=== PATIENT | male | born 1965 | race Caucasian/White ===

== ENCOUNTER 2017-12-12 14:06 | Emergency (ER) | payer MEDICAID ==
[~2017-12-12] VITALS: Ht 182.9 cm; Wt 201.8 kg
[~2017-12-12 14:06] MED LIST: COUMADIN; DIABETA; DURAGESIC1 EAC2; LASIX 40 MG TAB40 M2 PO; NEURONTIN600 MG PO; NORVASC10 MG PO; OMEPRAZOLE; PERCOCET 5-3251 EACH PO; VALIUM
[2017-12-12] MEDS ORDERED: ALBUTEROL2.5 MG/0.5 INH (14:41)
[2017-12-12] MEDS ORDERED: ACCUNEB SO1.25 MG/1 INH (14:41)
[2017-12-12] MEDS ORDERED: ASPIRIN81 M2 PO (14:42)
[2017-12-12] MEDS ORDERED: VITAMINC500 PO (14:42)
[2017-12-12] MEDS ORDERED: ARIPIPRAZOLE OD15 MG PO (14:42)
[2017-12-12] MEDS ORDERED: ATORVASTATIN CA40 MG PO (14:42)
[2017-12-12] MEDS ORDERED: VITAMIN D2000 UNIT PO (14:43)
[2017-12-12] MEDS ORDERED: DOXEPIN 10 MG C10 MG PO (14:44)
[2017-12-12] MEDS ORDERED: EPINEPHRIN0.15 MG/01 IM (14:45)
[2017-12-12] MEDS ORDERED: PROZAC20 MG PO (14:45)
[2017-12-12] MEDS ORDERED: HYDRALAZINE 2525 MG PO (14:46)
[2017-12-12] MEDS ORDERED: LEVEMIR SUBQ (14:47)
[2017-12-12] MEDS ORDERED: COZAAR 50 MG TA50 M1 PO (14:48)
[2017-12-12] MEDS ORDERED: METFORMIN HCL500 MG PO (14:48)
[2017-12-12] MEDS ORDERED: ASMANEX220 MC2 INH (14:49)
[2017-12-12] MEDS ORDERED: MS CONTIN15 MG PO (14:49)
[2017-12-12] MEDS ORDERED: PREDNISONE 20 M20 MG PO (14:50)
[2017-12-12] MEDS ORDERED: PROMETHAZINE/C118 ML PO (14:50)
[2017-12-12] MEDS ORDERED: PROMS25 WY RECTAL (14:50)
[2017-12-12] MEDS ORDERED: ZANTAC 150MG T150 MG PO (14:51)
[2017-12-12] MEDS ORDERED: ALDACTONE25 MG PO (14:51)
[2017-12-12] MEDS ORDERED: FLOMAX0.4 MG PO (14:52)
[2017-12-12] MEDS ORDERED: GEODON40 MG PO (14:52)
[2017-12-12 14:58] LABS: ABSOLUTE BASOPHILS 0.1 thou/uL (0.0-0.2); ABSOLUTE EOSINOPHILS 0.1 thou/uL (0.0-0.7); ABSOLUTE LYMPHOCYTES 2.5 thou/uL (0.8-5.3); ABSOLUTE MONOCYTES 0.5 thou/uL (0.0-1.2); ABSOLUTE NEUTROPHILS 5.9 thou/uL (1.6-8.1); BASOPHILS 0.6 %; EOSINOPHILS 0.7 %; HEMATOCRIT 38.3 % (42.0-52.0); HEMOGLOBIN 12.7 gm/dL (14.0-18.0); LYMPHOCYTES 27.3 %; MCH 31.2 pg (26.0-34.0); MCHC 33.3 g/dL (28.0-37.0); MCV 93.9 fL (80.0-100.0); MONOCYTES 5.3 %; MPV 8.9 fl. (7.2-11.1); NUCLEATED RBCS 0 /100WBC; PLATELET COUNT* 211 thou/uL (150-400); POLYS 66.1 %; RBC 4.07 mil/uL (4.50-6.00); RDW-CV 16.5 % (10.5-14.5)
[2017-12-12 15:10] LABS: ANION GAP 5 mmol/L (7-16); BUN 14 mg/dL (7-18); CALCIUM 8.3 mg/dL (8.5-10.1); CHLORIDE 102 mmol/L (98-107); CO2 35 mmol/L (21-32); CREATININE 1.8 mg/dL (0.6-1.3); GLUCOSE 97 mg/dL (70-99); POTASSIUM 4.2 mmol/L (3.5-5.1); SODIUM 142 mmol/L (136-145)
[2017-12-12 15:17] LABS: ALBUMIN 3.1 g/dL (3.4-5.0); ALKALINE PHOSPHATASE 132 U/L (46-116); LIPASE 99 U/L (73-393); SGOT 11 U/L (15-37); SGPT 18 U/L (30-65); TOTAL BILIRUBIN 0.3 mg/dL (<0.1-1.0); TOTAL PROTEIN 7.7 g/dL (6.4-8.2); TROPONIN-I LEVEL <0.06 ng/mL (<0.06)
[2017-12-12 15:40] LABS: BE 7.5 mmol/L (-2 to +3); pH 7.348 (7.340-7.450)
[2017-12-12 15:43] LABS: PCO2 65.2 mmHg (35.0-45.0)
[2017-12-12 16:55] LABS: APTT 27.7 Seconds (25.0-31.3); PROTIME 10.1 Seconds (9.20-11.50)
[2017-12-12 17:24] LABS: URINE BILIRUBIN NEGATIVE (Negative); URINE BLOOD NEGATIVE (Negative); URINE CLARITY CLEAR; URINE COLOR YELLOW; URINE GLUCOSE-RANDOM NEGATIVE (Negative); URINE KETONES NEGATIVE (Negative); URINE LEUKOCYTES-REFLEX NEGATIVE (Negative); URINE NITRITE-REFLEX NEGATIVE (Negative); URINE PROTEIN NEGATIVE (Negative); URINE UROBILINOGEN 0.2 E.U./dl (0.2-1.0)
[2017-12-12 17:32] LABS: AMP/METHAMP Negative (Negative); BARBITURATES Negative (Negative); BENZODIAZEPINES POSITIVE (Negative); COCAINE Negative (Negative); METHADONE Negative (Negative); OPIATES Negative (Negative); PCP Negative (Negative); THC POSITIVE (Negative)
[2017-12-12 21:00] VITALS: BP 116/70
--- NOTE | 2017-12-13 12:58 | EKG ---
[place] [address] ELECTROCARDIOGRAM REPORT Name: FLACA BACON [id number] Admission: 12/12/17 Attend Phys: Discharge: 12/12/17 Date of : 65 Report #: [id number] THIS REPORT FOR: //name// [facility] ED Test Date: 2017-12-12 Test Time: 14:33:20 Pat Name: FLACA BACON Department: Room: Gender: M Medical Planner: Barbara ROBLEDO : 1965 Requested By: Shreya Capps Order Number: [id number] MD: Sancho Mendoza Measurements Intervals [place] Rate: 81 P: 23 UT: 239 QRS: -12 QRSD: 107 T: 31 QT: 413 QTc: 480 Interpretive Statements Sinus rhythm Prolonged UT interval artifact Compared to ECG 04/26/2011 00:32:18 First degree AV block now present Electronically Signed On 12-13-2017 12:58:33 RO[address] MAKER by Sancho Mendoza [email or web address] <ELECTRONICALLY SIGNED> By: Sancho Mendoza MD, [facility] 12/13/17 1258 1433 1433 Sancho Mendoza MD, FAC /EPI
== END 2017-12-12 21:05 | disposition short-term general hospital (02) ==
LOC: M.ERS 14:06
PROVIDERS: Physician Assistant
DX: R09.02 Hypoxemia (principal); M54.5 Low back pain; R32 Unspecified urinary incontinence; R91.8 Other nonspecific abnormal finding of lung field; G47.30 Sleep apnea, unspecified; I11.0 Hypertensive heart disease with heart failure; I50.9 Heart failure, unspecified; E11.9 Type 2 diabetes mellitus without complications; E66.9 Obesity, unspecified; F41.9 Anxiety disorder, unspecified; J45.909 Unspecified asthma, uncomplicated; F31.9 Bipolar disorder, unspecified; K21.9 Gastro-esophageal reflux disease without esophagitis; F20.9 Schizophrenia, unspecified; L40.9 Psoriasis, unspecified; G25.81 Restless legs syndrome; Z88.8 Allergy status to other drugs, medicaments and biological substances; Z88.2 Allergy status to sulfonamides; Z88.6 Allergy status to analgesic agent; Z88.1 Allergy status to other antibiotic agents; Z79.4 Long term (current) use of insulin; Z68.44 Body mass index [BMI] 60.0-69.9, adult

== ENCOUNTER 2017-12-19 06:45 | Inpatient (IN) | payer MEDICAID ==
[~2017-12-19] VITALS: Ht 182.9 cm; Wt 204.1 kg
[~2017-12-19 06:45] MED LIST changes: +ACCUNEB SO1.25 MG/1 INH; +ALBUTEROL2.5 MG/0.5 INH; +ALDACTONE25 MG PO; +ARIPIPRAZOLE OD15 MG PO; +ASMANEX220 MC2 INH; +ASPIRIN81 M2 PO; +ATORVASTATIN CA40 MG PO; +COZAAR 50 MG TA50 M1 PO; +DOXEPIN 10 MG C10 MG PO; +EPINEPHRIN0.15 MG/01 IM; +FLOMAX0.4 MG PO; +GEODON40 MG PO; +HYDRALAZINE 2525 MG PO; +LEVEMIR SUBQ; +METFORMIN HCL500 MG PO; +MS CONTIN15 MG PO; +PREDNISONE 20 M20 MG PO; +PROMETHAZINE/C118 ML PO; +PROMS25 WY RECTAL; +PROZAC20 MG PO; +VITAMIN D2000 UNIT PO; +VITAMINC500 PO; +ZANTAC 150MG T150 MG PO
[2017-12-19 06:47] VITALS: BP 114/69
[2017-12-19 07:00] LABS: BE 8.7 mmol/L (-2 to +3); HCO3 34.5 mmol/L (22.0-26.0); pH 7.436 (7.340-7.450)
[2017-12-19 07:02] LABS: PCO2 52.4 mmHg (35.0-45.0); PO2 53.5 mmHg (75.0-100.0)
[2017-12-19] MEDS ORDERED: XANAX 0.5 MG0.5 MG PO (07:22)
[2017-12-19] MEDS ORDERED: FLEXERIL PO (07:26)
[2017-12-19] MEDS ORDERED: CEFDINIR300 MG PO (07:27)
[2017-12-19] MEDS ORDERED: LEVEMIR SUBQ (07:28)
[2017-12-19] MEDS ORDERED: KLOR-CON 1010 MEQ PO (07:31)
[2017-12-19] MEDS ORDERED: ADVAIR HFA 230M12 GM INH (07:31)
[2017-12-19] MEDS ORDERED: AMBIEN 10 MG TA10 MG PO (07:32)
[2017-12-19] MEDS ORDERED: SENOKOT8.6 MG PO (07:32)
[2017-12-19] MEDS ORDERED: NYAMYC15 GM PO (07:35)
[2017-12-19] MEDS ORDERED: OXYCODONE HCL 55 MG PO (07:36)
[2017-12-19] MEDS ORDERED: HEALTHYLAX17 GM PO (07:36)
[2017-12-19 08:01] LABS: INFLUENZA A ANTIGEN None Detected (None Detect); INFLUENZA B ANTIGEN None Detected (None Detect)
[2017-12-19 08:07] LABS: ABSOLUTE BASOPHILS 0.1 thou/uL (0.0-0.2); ABSOLUTE EOSINOPHILS 0.2 thou/uL (0.0-0.7); ABSOLUTE LYMPHOCYTES 2.2 thou/uL (0.8-5.3); ABSOLUTE MONOCYTES 0.5 thou/uL (0.0-1.2); ABSOLUTE NEUTROPHILS 5.1 thou/uL (1.6-8.1); BASOPHILS 0.7 %; EOSINOPHILS 2.3 %; HEMATOCRIT 37.3 % (42.0-52.0); HEMOGLOBIN 12.2 gm/dL (14.0-18.0); LYMPHOCYTES 27.3 %; MCH 30.7 pg (26.0-34.0); MCHC 32.7 g/dL (28.0-37.0); MONOCYTES 6.1 %; MPV 9.5 fl. (7.2-11.1); NUCLEATED RBCS 0 /100WBC; PLATELET COUNT* 188 thou/uL (150-400); POLYS 63.6 %; RBC 3.96 mil/uL (4.50-6.00); RDW-CV 16.3 % (10.5-14.5); WBC 8.1 thou/uL (4.0-11.0)
[2017-12-19 08:14] LABS: PROTIME 10.1 Seconds (9.20-11.50)
[2017-12-19 08:20] LABS: ANION GAP 4 mmol/L (7-16); BUN 22 mg/dL (7-18); CALCIUM 8.6 mg/dL (8.5-10.1); CHLORIDE 102 mmol/L (98-107); CO2 37 mmol/L (21-32); CREATININE 1.5 mg/dL (0.6-1.3); GLUCOSE 116 mg/dL (70-99); POTASSIUM 3.8 mmol/L (3.5-5.1); SODIUM 143 mmol/L (136-145)
[2017-12-19 08:24] LABS: ALBUMIN 3.1 g/dL (3.4-5.0); ALKALINE PHOSPHATASE 109 U/L (46-116); LIPASE 85 U/L (73-393); NT-PRO BRAIN NAT PEPTIDE 52 pg/mL (<300); SGOT 20 U/L (15-37); SGPT 23 U/L (30-65); TOTAL BILIRUBIN 0.3 mg/dL (<0.1-1.0); TOTAL PROTEIN 7.3 g/dL (6.4-8.2); TROPONIN-I LEVEL <0.06 ng/mL (<0.06)
[2017-12-19 10:26] LABS: HCO3 36.1 mmol/L (22.0-26.0); PO2 71.6 mmHg (75.0-100.0); pH 7.434 (7.340-7.450)
[2017-12-19 10:31] LABS: PCO2 55.2 mmHg (35.0-45.0)
[2017-12-19 14:51] VITALS: BP 121/59
[2017-12-19 16:46] VITALS: BP 146/69
--- NOTE | 2017-12-19 18:00 | NUR ---
RECEIVED REPORT FROM GADIEL IN ER. PT TRANSFERED TO [facility] AT 1455. PT A&O X4. VSS. PT ON CONTINUOUS BIBAP, TO COME OFF FOR MEALS ONLY. BRANCH LOGISTICS SUPERVISOR IN PLACE TRACING SR WITH 1DEGREE. PT ORIENTED TO ROOM, BED AND CALL LIGHT. ADMISSION ASSESSMENT, HISTORY, AND EDUCATION COMPLETED CHARTED. PT REPORTS BACK PAIN 4/10 THAT IS CHRONIC, DENIES NEED FOR MEDICATION FOR PAIN AT THIS TIME. PT EATING AND DRINKING WITHOUT ISSUE. PULMOARY CONSULTED. SPOUSE AT BEDSIDE. PT UP TO BEDSIDE COMMODE WITH ASSIST OF SPOUSE TO VOID AND HAVE BM - NO ISSUES. NOTED PT'S DRY SKIN ON FEET. MEDS GIVEN PER EMAR. IV SALINE LOCKED. PT CURRENTLY SITTING IN BEDSIDE CHAIR. FALL PRECAUTIONS ARE IN PLACE, EXCEPT FALL SOCKS - THEY WILL NOT FIT PT. CALL LIGHT IS WITHIN REACH, HOURLY ROUNDING PERFORMED.
--- NOTE | 2017-12-19 18:10 | EKG ---
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: : 1965 Requested By: Phong Benedict Order Number: [id number] MD: Jeff Osborn Measurements Intervals [place] Rate: 80 P: 0 OR: 58 QRS: -14 QRSD: 109 T: 28 QT: 398 QTc: 460 Interpretive Statements Sinus rhythm Short OR interval Low voltage, precordial leads Baseline wander in lead(s) V2 Compared to ECG 12/12/2017 14:33:20 Short OR interval now present Low QRS voltage now present First degree AV block no longer present Electronically Signed On 12-19-2017 18:10:18 CDT by Jeff Osborn [email or web address] <ELECTRONICALLY SIGNED> By: Jeff Osborn MD, FACC 12/19/17 1810 0649 0649 Jeff Osborn MD, FAC /EPI
[2017-12-19 20:00] VITALS: BP 120/54
[2017-12-20 00:12] VITALS: BP 143/68
--- NOTE | 2017-12-20 03:24 | NUR ---
PT ALERT ORIENTED. IN ROOM WITH PT. TELEMETRY SHOWS SR. PT SLEEPING IN RECLINING CHAIR. PT IS OBESE. INITALLY O2 AT 5 LITERS NC. BIPAP ON AT 2200. OXYCODONE GIVEN FOR BACK PAIN. PT REFUSED LASIXS AT HS. PT STATED THAT HE HAD IT IN ED AND ON FLOOR AFTER ADMISSION. PT ALSO REFUSED STOOL SOFTENERS AND MIRALAX STATING HE GOES 2-3 TIMES A DAY. WILL CONTINUE TO MONITOR.
[2017-12-20 03:49] VITALS: BP 118/64
[2017-12-20 06:00] LABS: HEMATOCRIT 34.9 % (42.0-52.0); HEMOGLOBIN 11.6 gm/dL (14.0-18.0); MCH 31.3 pg (26.0-34.0); MCHC 33.1 g/dL (28.0-37.0); MCV 94.4 fL (80.0-100.0); MPV 9.7 fl. (7.2-11.1); RBC 3.7 mil/uL (4.50-6.00); RDW-CV 16.5 % (10.5-14.5); WBC 8.9 thou/uL (4.0-11.0)
[2017-12-20 06:32] LABS: ANION GAP 4 mmol/L (7-16); BUN 31 mg/dL (7-18); CALCIUM 8.6 mg/dL (8.5-10.1); CHLORIDE 100 mmol/L (98-107); CO2 36 mmol/L (21-32); CREATININE 1.5 mg/dL (0.6-1.3); GLUCOSE 219 mg/dL (70-99); MAGNESIUM 2.2 mg/dL (1.8-2.4); POTASSIUM 4.6 mmol/L (3.5-5.1); SODIUM 140 mmol/L (136-145); TROPONIN-I LEVEL <0.06 ng/mL (<0.06)
[2017-12-20 08:10] VITALS: BP 134/74
[2017-12-20 12:00] VITALS: BP 130/58
--- NOTE | 2017-12-20 15:16 | 2DMMODE ---
[place] [address] 2 D/M-MODE ECHOCARDIOGRAM Name: FLACA BACON Room: [address] IN [facility]#: [id number] Admission: 12/19/17 Attend Phys: Javier Torres Discharge: Date of : 65 Date of Service: 12/20/17 1516 Report #: [id number] THIS REPORT FOR: //name// APPROVED REPORT Study performed: 12/19/2017 18:08:53 EXAM: Comprehensive 2D, Doppler, and color-flow Echocardiogram Patient Location: In-Patient Room #: [facility] Status: routine BSA: 2.98 HR: 75 bpm BP: 121/559 mmHg Rhythm: NSR Other Information Study Quality: Technically Limited Technically limited study due to body habitus, poor endocardial definition, inability to position patient. Indications Respiratory failure, cor-pulmonale Echo Enhancing Agent Indication: Endocardial border delineation Agent(s) / Amount(s) Used: Optison 5 cc Aortic Valve AoV Peak Alan.: 1.58 m/s AO Peak Gr.: 10.02 mmHg AO Mean Gr.: 5.96 mmHg AO V2 VTI: 31.89 cm Mitral Valve E/A Ratio: 1.06 MV Decel. Time: 257.34 ms MV E Max Alan.: 1.06 m/s MV PHT: 74.63 ms MVA (PHT): 2.95 cm2 Left Ventricle The left ventricle is normal size. There is normal left ventricular wall thickness. The left ventricular systolic function is normal. The left ventricular ejection fraction is within the [place] [address] 2 D/M-MODE ECHOCARDIOGRAM Name: FLACA BACON Khadijah Room: [address] IN [facility]#: [id number] Admission: 12/19/17 Attend Phys: Javier Torres Discharge: Date of : 65 Date of Service: 12/20/17 1516 Report #: [id number] is 55-60%. The left ventricular diastolic function is normal. Right Ventricle Right ventricle is not well visualized. Atria Left atrium is not well visualized. Right atrium is not well visualized. Aortic Valve The aortic valve is not well visualized. Mitral Valve Mitral valve is not well visualized. Tricuspid Valve Tricuspid valve is not well visualized. Pulmonic Valve Pulmonic valve is not well visualized. Great Vessels IVC is not visualized. <Conclusion> The left ventricular systolic function is normal. The left ventricular ejection fraction is within the normal range. LVEF is 55-60%. The left ventricular diastolic function is normal. Right ventricle is not well visualized. Left atrium is not well visualized. Right atrium is not well visualized. The aortic valve is not well visualized. Mitral valve is not well visualized. Pulmonic valve is not well visualized. <ELECTRONICALLY SIGNED> By: Basil Pepe MD, FACC 12/20/17 151 15 15 Basil Pepe MD, FAC /INF
[2017-12-20 16:00] VITALS: BP 130/59
--- NOTE | 2017-12-20 18:48 | NUR ---
RECEIVED REPORT. ASSUMED CARE OF PT AT 0730. VSS. O2 SAT 91% ON 5L PER NC. PT A&OX4. COMPUTER DISCOVERY TEACHER IN PLACE TRACING SR WITH 1 DEGREE AV BLOCK. AM ASESSMENT AND VITALS COMPLETED CHARTED. IV SALINE LOCKED. PT REPORTED BACK PAIN THIS AM, RECEIVED PO PAIN MEDIATION WITH RELIEF. PT WOULD LIKE TO RECEIVE MORE PAIN MEDICATIN AT 7PM - WILL ADMINSITER. SEE EMAR FOR ADMINISTRATION AND REASSESSMENT OF PAIN MEDS. PT EATING AND DRINKING WITHOUT ISSUE. PT UP TO BEDSIDE COMMODE TO VOID; VOIDING WITHOUT ISSUE. PT'S REMAINING AT BEDSIDE TO ASSIST PT. PT STATES HE FEELS BETTER THAN YESTERDAY. PT SOB WITH EXERTION. PT SLOWLY PROGRESSING TOWARD GOALS. PT REPOSITIONING SELF FREQUENTLY FOR COMFORT, HAS SAT IN BEDSIDE CHAIR MOST OF SHIFT. PT CURRENTLY WATCHING TV. FALL PRECAUTIONS ARE IN PLACE. CALL LIGHT IS WITHIN REACH, HOURLY ROUNDING PERFORMED. WILL CONTINUE TO MONITOR FOR DURATION OF SHIFT.
[2017-12-20 20:00] VITALS: BP 134/67
[2017-12-21 00:12] VITALS: BP 119/65
--- NOTE | 2017-12-21 01:05 | NUR ---
PT ALERT ORIENTED. UP AD JUAN MIGUEL IN ROOM. AT BEDSIDE. O2 AT 5 LITERS NC. BIPAP AT HS. PAIN RATED 4/10. PT STATES THAT IS THE BEST HIS PAIN GETS. TELEMETRTY SHOWS SR. LASIX WAS SCHEDULED Q [address] VELASQUEZ CONTACTED TO SEE IF ORDER COULD BE CHGED TO BID SO PT CAN GET SOME SLEEP. ORDER CHGD TO BID. WILL CONTINUE TO MONITOR.
[2017-12-21 04:00] VITALS: BP 119/61
[2017-12-21 04:16] LABS: HEMATOCRIT 33.9 % (42.0-52.0); HEMOGLOBIN 11.2 gm/dL (14.0-18.0); MCH 31.2 pg (26.0-34.0); MCHC 33.1 g/dL (28.0-37.0); MCV 94.1 fL (80.0-100.0); MPV 10.3 fl. (7.2-11.1); RBC 3.6 mil/uL (4.50-6.00); RDW-CV 16.4 % (10.5-14.5); WBC 10.4 thou/uL (4.0-11.0)
[2017-12-21 04:27] LABS: CALCIUM 8.5 mg/dL (8.5-10.1); CREATININE 1.7 mg/dL (0.6-1.3); MAGNESIUM 2.2 mg/dL (1.8-2.4); POTASSIUM 4.8 mmol/L (3.5-5.1); TOTAL BILIRUBIN 0.2 mg/dL (<0.1-1.0); TOTAL PROTEIN 6.8 g/dL (6.4-8.2)
--- NOTE | 2017-12-21 07:08 | CON ---
[facility] [address] [place] [address] CONSULTATION Name: ARLEENFLACA D Room: [address] IN [facility]#: [id number] Admission: 12/19/17 Attend Phys: Javier Tillman, Discharge: Date of : 65 Report #: [id number] THIS REPORT FOR: //name// CC: SHANNA physician/PCP Javier Tillman REQUESTING PHYSICIAN: Dr. Javier Tillman. REASON FOR CONSULTATION: Acute on chronic respiratory failure. DISCUSSION: The patient is a 52-year-old male with a history of morbid obesity and obstructive sleep apnea on BiPAP at home. He is also on chronic oxygen. He was admitted after presenting to the Emergency Department yesterday morning. He had complained of marked shortness of breath, feeling like he was going to pass out. He was gasping for breath at home, had some chest tightness. He apparently was just discharged from [facility] several days prior to this. He notes he was treated for pneumonia and respiratory failure at that time. He was in the ICU for part of that time, but was not intubated. Currently, we do not have any of those records. When he was admitted here, he was hypercapnic. He was placed on BiPAP. He was kept on that overnight, is currently on nasal cannula. Subjectively, he is feeling better. He is a non-cigarette smoker. He was smoking marijuana up till a couple of months ago. He states he quit when he was told that he had COPD. He has gotten his healthcare in a variety of areas. He notes he just moved up to this area again [place] [facility], though he has ED visits here at [place] in the past, given he was just recently at [facility]. He has a history of morbid obesity. He does note overall his weight is less than what it had been in the past. At one point, he was over 600 pounds. He does have obstructive sleep apnea. He did have sleep study done at this facility back in the year 2009 and at that time, it did show that he had severe obstructive sleep apnea. He had an apnea-hypopnea index of 142. He notes he is now on a BiPAP at home. He has been on O2 during the day as well as bled into his BiPAP. However once he was discharged from [facility], he has not been using that. He has a nebulizer at home, but has not filled any medications for it. He does have an albuterol inhaler at home. He does note that he was coughing up yellow secretions, no hemoptysis. That has improved. He was taking antibiotics when he was discharged from [place]. Denies being on any steroids. It does appear there are discrepancies on the admission medication sheet from the ED, as he is not on nebulizer treatments, prednisone or Asmanex. PAST MEDICAL HISTORY: Remarkable for the morbid obesity. [place] [address] CONSULTATION Name: FLACA BACON Room: [address] IN [facility]#: [id number] Admission: 12/19/17 Attend Phys: Javier Tillman, Discharge: Date of : 65 Report #: [id number] told he has congestive heart failure. 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 History of DVT on the left side some years ago. He has chronic back pain, is on chronic narcotics. Also, he has a history of pseudotumor cerebri, anxiety, bipolar disorder, GERD, hypertension. 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 He does not work now. Non-cigarette smoker as noted. He is . Smoked marijuana until several months ago. Denies other drug use. FAMILY HISTORY: Positive for heart disease. REVIEW OF SYSTEMS: ROS was obtained from the patient. No positives as above. HE DOES HAVE SIGNIFICANT ALLERGIES TO OTHER MEDICATIONS WELL TO WASP. He does have access to an EpiPen at home, though he notes that it has . He has never had to use it. He denies any recent nausea or vomiting. No hemoptysis. No indigestion or heartburn. He has chronic lower extremity edema that overall is better than what it was when he was first admitted to [place]. Recently, however, he has noted increased facial swelling as well as some in his hands. He has not noted any blood in the stools. He has chronic back pain. He notes some numbness and tingling of the lower extremities. He denies any true syncopal episodes. He has been on warfarin for years, he was on it previously for his DVT. PHYSICAL EXAMINATION: GENERAL: The patient is seen while sitting at the bedside. He is a large man. His is also present in the room and is able to contribute to some of the history. HEENT: Head is normocephalic. Sclerae are nonicteric. Mucous membranes do look moist. Face does look almost cushingoid. NECK: Large, but supple without adenopathy. No JVD is noted. HEART: Tones are distant, but appear regular. No S3 is appreciated. LUNGS: Reveal breath sounds to be somewhat diminished given his body habitus. Slight prolongation of expiratory phase. No wheezing or crackles are heard. No CVA tenderness. ABDOMEN: Very obese. Does not appear tender to palpation. EXTREMITIES: He may have swelling in his hands. Lower extremities have trace to 1+ edema. Pulses are present, but diminished. SKIN: Turgor is fair. He has multiple tattoos throughout trunk and extremities and his back. NEUROLOGIC: He is alert and oriented x 3. LABORATORY AND X-RAY FINDINGS: Portable chest film done yesterday in the ED does show some cardiomegaly. Some prominence of markings noted bilaterally. Could be CHF, intermittently infiltrates. He did have a CT angiogram done of his chest on 12/12/2017 here when seen in the ED. No PE was noted. He did have some mild bilateral perihilar ground-glass infiltrates[place] [address] CONSULTATION Name: ARLEENFLACA Khadijah Room: [address] IN [facility]#: [id number] Admission: 12/19/17 Attend Phys: Javier Tillman, Discharge: Date of : 65 Report #: [id number] done on 12/12/2017 when he had ED visit on 2 liters, he had a pH of 7.35, pCO2 of 65, pO2 of 59 with a saturation of 88%. Carboxyhemoglobin was 1.7. Yesterday morning, pH 7.44, pCO2 of 52, pO2 of 54, bicarbonate 35 and saturation of 88%, that was on 6 liters. Followup blood gases yesterday on BiPAP, pH 7.43, pCO2 of 55, pO2 72, bicarbonate 36 with a saturation of 94%. On his chemistry, potassium is 4.6, BUN 31, creatinine of 1.5, glucose 219. Transaminases are normal. Lactic acid last week was 1.4. ProBNP yesterday was only 52. White blood cell count 8900, hemoglobin 11.6, hematocrit of 34.9, platelets are normal. Influenza screen was negative. EKG shows normal sinus rhythm. IMPRESSION: 1. Acute respiratory failure superimposed on chronic respiratory failure. Clinically better this morning. He is recovering from pneumonia, which was treated at [facility]. It is not clear exactly what antibiotic he was on. 2. Severe obstructive sleep apnea. He may also have a component of obesity hypoventilation syndrome. He has not been compliant with his BiPAP. 3. Chronic respiratory failure. It appears that he is chronically hypercapnic and hypoxic. 4. Possible chronic obstructive pulmonary disease. He states he has been told that he has it. He has a nebulizer at home, but has not been using it. He has not refilled a prescription for medications for it. 5. Past history of DVT. A recent CTA of his chest was negative for PE. 6. HISTORY OF ENVIRONMENTAL AND MEDICATION ALLERGIES. 7. Chronic back pain, on chronic narcotics. 8. Morbid obesity. RECOMMENDATIONS: 1. Await records from [facility]. 2. He needs to be compliant with his BiPAP at home. Reiterated untreated or undertreated sleep apnea can contribute to fluid retention, cardiac issues, early , etc. 3. Follow up blood gases. 4. Also check TSH, that has not been done this admission. 5. Long-term weight loss. 6. I will check lower extremity venous Dopplers given his history. 7. Wean O2 as able. <ELECTRONICALLY SIGNED> By: Liza South MD 12/21/17 0708 0936 1130Liza South MD /nt
[2017-12-21 08:00] VITALS: BP 128/68
[2017-12-21 10:10] LABS: HCO3 32.2 mmol/L (22.0-26.0); PCO2 47.9 mmHg (35.0-45.0); PO2 63.5 mmHg (75.0-100.0); pH 7.445 (7.340-7.450)
[2017-12-21 12:00] VITALS: BP 137/68
--- NOTE | 2017-12-21 15:59 | NUR ---
RECEIVED REPORT. ASSUMED CARE OF PT AT 0730. PT A&O X4. VSS. O2 SAT 92% ON 4L PER NC. MULTIMEDIA ENGINEER IN PLACE TRACING SB TO SR WITH 1 DEGREE AV BLOCK. AM ASSESSMENT AND VITALS COMPLETED CHARTED. IV SALINE LOCKED. PT REPORTED HEADACHE PAIN/PRESSURE THIS AFTERNOON AND RECEIVED PO PAIN MEDICATION WITH RELIEF. PT STATES HE FEELS TIRED BECAUSE HE DIDN'T SLEEP WELL DUE TO BIPAP MASK NOT FITTING WELL. PT EATING AND DRINKING WITHOUT ISSUE. AT BEDSIDE. PT USING URINAL TO VOID, NO ISSUES. PT REPORTED BM EARLY THIS AM. PT INFORMED OF PLAN OF CARE, PT COMMUNCIATES UNDERSTANDING. PT REMAINS SOB WITH EXERTION. ABG'S BETTER TODAY, SEE LABS. FALL PRECAUTIONS ARE IN PLACE. CALL LIGHT IS WITHIN REACH, PT REPOSITIONING SELF IN THE BED. WILL CONTINUE TO MONITOR.
[2017-12-21 16:00] VITALS: BP 135/67
--- NOTE | 2017-12-21 18:58 | NUR ---
PT REMAINS A&O X4. VSS. O2 >90% ON 4L. NURSERY SUPERVISOR REMAINS IN PLACE WITH NO CHANGES THIS SHIFT. PT REPORTS RELIEF FROM PAIN PILL HE RECEIVED THIS AFTERNOON FOR HEAD PRESSURE. GAVE PT A BED BATH THIS EVENING. PT EATING AND DRINKING WITHOUT ISSUE. PT VOIDING PER URINAL. PT PROGRESSING TOWARDS GOALS. PT HAS BEEN IN BEDSIDE CHAIR AND BED TODAY. EDUCATED ABOUT CHANGING POSITIONS TO KEEP SKIN FROM BREAKING DOWN. PT COMMUNICATES UNDERSTANDING. PT CURRENTLY RESTING IN BED. FALL PRECAUTIONS ARE IN PLACE. CALL LIGHT IS WITHIN REACH, HOURLY ROUNDING PERFORMED.
[2017-12-21 20:00] VITALS: BP 123/36
[2017-12-22] VITALS (8 sets, daily range): BP systolic 113–155; BP diastolic 57–72
--- NOTE | 2017-12-22 04:58 | NUR ---
PATIENT PROGRESSING TOWARDS GOALS: PATIENT TOLERATED BIPAP THROUGHOUT SHIFT. PATIENT DENIES PAIN OR DISCOMFORT THAT IS NOT HIS "USUAL CHRONIC PAIN." PATIENT RESTED COMFORTABLY THROUGH THE SHIFT WITH NO REQUESTS/CONCERNS. HOURLY ROUNDING OBSERVED. CALL LIGHT WITHIN REACH
[2017-12-22 06:13] LABS: CALCIUM 8.8 mg/dL (8.5-10.1); CREATININE 1.7 mg/dL (0.6-1.3); MAGNESIUM 2.3 mg/dL (1.8-2.4); POTASSIUM 5.3 mmol/L (3.5-5.1)
--- NOTE | 2017-12-22 12:57 | NUR ---
Nutrition: Pt admitted with respiratory failure. PMHx: cor pulmonale, DM, GERD, HTN, bipolar disorder. Wt: 456#. Consult received for "obesity." BG 303, alb 3, BUN 45, creat 1.7. RX: insulin, vit C, D3, lasix, solumedrol. On bipap. Eating CHO controlled diet. Pt is at Mild risk. GOALS: better BG control, good appetite. Will follow up per protocol.
--- NOTE | 2017-12-22 13:58 | NUR ---
MET WITH PT AND TO DISCUSS HOME SITUATION/DC PLANNING. PT LIVES WITH AND DTR. THEY RECENTLY MOVED FROM [place] TO [place] TO HAVE MORE FAMILY SUPPORT. PT USES O2 (FOR ACTIVITY AND THRU BIPAP AT NIGHT, 2L) AND BIPAP THRU [facility]. HE HAS WALKER THAT HE USES WHEN OUT OF THE HOUSE AND A POWER W/C ALSO. IS WORKING TO GET A 'LIFT' FOR THEIR CAR FOR HIS W/C. PT IS FAIRLY INDEPENDENT WITH ADLS, DTR AND ASSIST NEEDED. HE HAD A RECENT STAY AT [facility] FOR PNA, STATED HE WAS TRANSFERRED THERE FOR OPEN MRI AND ADMITTED TO ICU AFTER. NEVER INTUBATED. PT AND STATE THEY ARE SEEKING NEW MEDICAL PROVIDERS SINCE MOVE. HE HAS APPT WITH DR OMARI DOMINGO 12/29 AT [facility] [place], DID CONFIRM THAT. THEY WOULD LIKE CLINICAL [place] [phone] AT [place]. ASKED ABOUT HELP WITH GETTING A NEW NEUROLOGIST, PAIN MGMT AND PLASTERING SUPERVISOR. MADE HER AWARE THAT RECOMMENDATIONS WOULD BE MADE AT [place] FOR F/;U. WILL CONTACT PAIN CLINIC TOMORROW TO CHECK IF THEY ACCEPT MEDICAID PTS. PT DOESN'T HAVE A DPOA, INFO GIVEN. WILL ALSO PROVIDE INFO RE: IN HOME CARE FOR CONSUMER [facility]EN [facility]. PT HAS NOT HAD HH, NOT SURE THEY WANT THAT. WILL FOLLOW.
[2017-12-22 14:18] LABS: HEMATOCRIT 36.2 % (42.0-52.0); HEMOGLOBIN 11.9 gm/dL (14.0-18.0); MCH 31.1 pg (26.0-34.0); MCHC 32.8 g/dL (28.0-37.0); MCV 94.6 fL (80.0-100.0); MPV 10.1 fl. (7.2-11.1); RBC 3.82 mil/uL (4.50-6.00); RDW-CV 16.9 % (10.5-14.5); WBC 10.7 thou/uL (4.0-11.0)
[2017-12-22 15:30] LABS: BE 5.3 mmol/L (-2 to +3); HCO3 30.8 mmol/L (22.0-26.0); PCO2 48.9 mmHg (35.0-45.0); PO2 85.1 mmHg (75.0-100.0); pH 7.417 (7.340-7.450)
--- NOTE | 2017-12-22 18:00 | NUR ---
PT A & O X4, ABLE TO COMMUNICATE NEEDS TO STAFF. VS WNL. SB-SR, 1 D BLOCK ON MONITOR. O2 SATS >92% ON 4L NC. APPEARS TO BE COMFORTABLE. AMBULATING TO BR ON OWN WITH STEADY GAIT. AT BS. NEEDED ITEMS AND CALL LIGHT WITHIN REACH.
[2017-12-23 04:00] VITALS: BP 135/71
--- NOTE | 2017-12-23 04:56 | NUR ---
PATIENT REMAINS STABLE THIS SHIFT ON BIPAP OVERNIGHT AND ON 3.5L O2 NC THIS AM WITH SATS >92%. CASTING MACHINE SERVICE OPERATOR TRACING SR/SB 1AVB AND VSS. PATIENT HAD C/O BACK PAIN AT HS, PRN MEDICATION ADMINISTERED PER EMAR. PATIENT RESTED WELL THROUGHOUT SHIFT. PATIENT UP TO BATHROOM WITH STANDBY ASSIST, TOLERATES ACTIVITY WITH MINIMAL SHORTNESS OF AIR ON EXERTION. HOURLY ROUNDING OBSERVED. CALL LIGHT WITHIN REACH.
[2017-12-23 08:07] VITALS: BP 133/76
--- NOTE | 2017-12-23 09:59 | NUR ---
ASSUMED CARE OF PT THIS AM AROUND 0715- TEAM PSYCHOLOGIST IN PLACE ORDERED, TRACING SB WITH 1ST DEGREE- UPON ASSESSMENT PT NOTED TO BE RESTING IN BED, WATCHING TV- PT A&O X4- CONTINENT OF BOWEL AND BLADDER- SBA WITH TRANSFERS FOR SAFETY- DIMINSHED LUNG SOUNDS WITH AUDIBLE WHEEZING- DYSPNEA NOTED ON EXERTION- VSS, O2 SAT 95% ON 3.5L- NON-PRODUCTIVE COUGH NOTED- ABDOMEN FIRM/OBESE/NON-TENDER, BS X4 QUADS- PT REPORTS T6O HAVE HAD BM THIS AM- BLOOD SUGARS MONITORED ORDERED, SSI PRESCIBED- GOOD PO INTAKE NOTED THIS AM WITH BREAKFAST- IV NOTED TO RIGHT AC INTACT AND SL-2+ BLE EDEMA NOTED, LEG ELEVATION ENCOURAGED- PT REPORTS PAIN 7/10 TO BACK, SCHEDULED MORPHINE GIVEN THIS AM PRESCIBED- CALL LIGHT AND PERSONAL BELONGINGS WITH IN REACH- HOURLY ROUNDS IN PLACE R/T SAFETY/NEEDS-ALL NEEDS MET AT THIS TIME-WCTM
[2017-12-23 12:00] VITALS: BP 132/65
[2017-12-23] MEDS ORDERED: PREDNISONE 10 M10 MG PO (12:47)
[2017-12-23 12:50] VITALS: BP 132/65
--- NOTE | 2017-12-23 13:55 | NUR ---
ORDERS NOTED FOR DC HOME. MET WITH PT AND TO FINALIZE DC PLAN. WAS ABLE TO FIND PAIN CLINIC[facility] THAT WILL CONSIDER PT LONG THEY GET A REFERRAL FROM PREVIOUS DR AND SEND CLINICAL FOR PAST 6 MONTHS RE: PAIN ISSUES, DEMOS, COPY OF INS CARD AND DRIVERS LICENSE AND DR CONTACT INFO. GAVE ALL OF THAT INFO TO PT'S WITH PHONE AND FAX NUMBER OF CLINIC. SHE PLANS TO CONTACT PT'S PREVIOUS DR TO OBTAIN. FAXED CLINICAL TO [facility] IN [place], PT HAS APPT FRIDAY. ALSO GAVE NUMBER FOR CARDIOLOGY OFFICE PER REQUES. PT TO HAVE RA/AMB SATS FOR O2 NEEDS, ALREADY HAS HOME O2 BUT ONLY WEARS PRN AND AT NIGHT THRU BIPAP. AWAIT THOSE RESULTS
--- NOTE | 2017-12-23 16:29 | NUR ---
ORDERS RECIEVED FOR OKAY FOR PT TO BE D/C HOME PER THIS AM ,POST RT EVAL FOR O2- R/T COMPLETED EVAL STATING THAT PT DID NOT NEED O2 AT HOME- PT AHS O2 NEEDED AT HOME AT THIS TIME- BIPAP TO BE WORN AT HS, PT VOICES UNDERSTANDING- IV TO RIGHT AC D/C'S ALONG WITH EXHAUSTER PRIOR TO D/C- D/C TEACHING/EDUCATION GIVEN TO PT AT TIME OF D/C, ALL QUESTIONS AND CONCERNA ADDRESSED AT THIS TIME- WRITTEN SCRIPTS ALONG WITH EDUCATION PROVIDED TO PT AT TIME OF D/C- BELONGINGS PACKED AND ACCOUNTED FOR PER PT AND ESCORTED TO VEHICLE PER - PT ESCORTED TO VEHICLE PER TECH VIA W/C AT 1630- NO PROBLEMS TO NOTE AT TIME OF D/C
== END 2017-12-23 16:34 | disposition home or self-care (01) | DRG 189 ==
LOC: M.ERS 06:45 → M.TBA-ER 09:20 → M.2W 09:20
PROVIDERS: Emergency Medicine; Internal Medicine; Internal Medicine Pulmonary Disease; ADMIT Family Medicine
DX: J96.21 Acute and chronic respiratory failure with hypoxia (principal); I42.9 Cardiomyopathy, unspecified; J44.1 Chronic obstructive pulmonary disease with (acute) exacerbation; Z68.44 Body mass index [BMI] 60.0-69.9, adult; J96.22 Acute and chronic respiratory failure with hypercapnia; E66.01 Morbid (severe) obesity due to excess calories; I27.81 Cor pulmonale (chronic); G89.29 Other chronic pain; F41.9 Anxiety disorder, unspecified; G47.33 Obstructive sleep apnea (adult) (pediatric); E11.22 Type 2 diabetes mellitus with diabetic chronic kidney disease; I12.9 Hypertensive chronic kidney disease with stage 1 through stage 4 chronic kidney disease, or unspecified chronic kidney disease; I50.9 Heart failure, unspecified; K21.9 Gastro-esophageal reflux disease without esophagitis; F31.9 Bipolar disorder, unspecified; N18.9 Chronic kidney disease, unspecified; F20.9 Schizophrenia, unspecified; Z88.1 Allergy status to other antibiotic agents; Z88.2 Allergy status to sulfonamides; Z88.8 Allergy status to other drugs, medicaments and biological substances; Z91.14 Patient's other noncompliance with medication regimen

== ENCOUNTER 2018-01-02 18:37 | Inpatient (IN) | payer MEDICAID ==
[~2018-01-02] VITALS: Ht 182.9 cm; Wt 201.8 kg
[~2018-01-02 18:37] MED LIST changes: +ADVAIR HFA 230M12 GM INH; +AMBIEN 10 MG TA10 MG PO; +CEFDINIR300 MG PO; +FLEXERIL PO; +HEALTHYLAX17 GM PO; +KLOR-CON 1010 MEQ PO; +NYAMYC15 GM PO; +OXYCODONE HCL 55 MG PO; +PREDNISONE 10 M10 MG PO; +SENOKOT8.6 MG PO; +XANAX 0.5 MG0.5 MG PO
[2018-01-02 18:38] VITALS: BP 140/62
[2018-01-02 18:58] LABS: BE 0.9 mmol/L (-2 to +3); HCO3 25.9 mmol/L (22.0-26.0); PO2 63.5 mmHg (75.0-100.0); pH 7.398 (7.340-7.450)
[2018-01-02 19:00] LABS: ABSOLUTE EOSINOPHILS 0.1 thou/uL (0.0-0.7); ABSOLUTE LYMPHOCYTES 1.6 thou/uL (0.8-5.3); ABSOLUTE MONOCYTES 0.5 thou/uL (0.0-1.2); ABSOLUTE NEUTROPHILS 7.4 thou/uL (1.6-8.1); BASOPHILS 0.5 %; EOSINOPHILS 1.5 %; HEMATOCRIT 40.1 % (42.0-52.0); HEMOGLOBIN 13.3 gm/dL (14.0-18.0); LYMPHOCYTES 16.5 %; MCH 31.4 pg (26.0-34.0); MCHC 33.2 g/dL (28.0-37.0); MCV 94.7 fL (80.0-100.0); MONOCYTES 5.5 %; MPV 9.7 fl. (7.2-11.1); NUCLEATED RBCS 0 /100WBC; PLATELET COUNT* 179 thou/uL (150-400); RBC 4.23 mil/uL (4.50-6.00); RDW-CV 16.7 % (10.5-14.5); WBC 9.8 thou/uL (4.0-11.0)
[2018-01-02 19:10] LABS: ANION GAP 9 mmol/L (7-16); BUN 22 mg/dL (7-18); CHLORIDE 102 mmol/L (98-107); CO2 31 mmol/L (21-32); CREATININE 1.4 mg/dL (0.6-1.3); GLUCOSE 331 mg/dL (70-99); POTASSIUM 3.9 mmol/L (3.5-5.1); SODIUM 142 mmol/L (136-145)
[2018-01-02 19:13] LABS: APTT 24.6 Seconds (25.0-31.3); PROTIME 9.5 Seconds (9.20-11.50)
[2018-01-02 19:21] LABS: ALBUMIN 3.3 g/dL (3.4-5.0); ALKALINE PHOSPHATASE 140 U/L (46-116); LIPASE 143 U/L (73-393); MAGNESIUM 1.8 mg/dL (1.8-2.4); NT-PRO BRAIN NAT PEPTIDE 83 pg/mL (<300); SGOT 10 U/L (15-37); SGPT 27 U/L (30-65); TOTAL BILIRUBIN 0.3 mg/dL (<0.1-1.0); TOTAL PROTEIN 7.3 g/dL (6.4-8.2); TROPONIN-I LEVEL <0.06 ng/mL (<0.06)
[2018-01-02 22:00] VITALS: BP 127/75
[2018-01-02 22:30] VITALS: BP 151/79
--- NOTE | 2018-01-02 22:30 | NUR ---
RECEIVED REPORT FROM ER AND TO ROOM PER CART. O2 ON AT 50% VM. TELEMETRY APPLIED SHOWING ST. AT BEDSIDE. SEE ADMISSION ASSESSMENT AND HX. VOIDED PER URINAL. WILL CONT TO MONITOR AND ASSIST NEEDED.
[2018-01-02] MEDS ORDERED: ADVAIR HFA 230M12 GM INH (22:41)
[2018-01-02] MEDS ORDERED: ALDACTONE25 MG PO (22:43)
--- NOTE | 2018-01-03 02:00 | NUR ---
LACTIC ACID RESULTS CALLED TO DR WRIGHT EARLIER, ORDERS RECEIVED. IV ANTIBIOTICS COMPLETED. PT C/O PAIN IN BACK AND GENERALIZED. DISCUSSED ORDER OF FENTANYL. STATED EARLIER THAT PT OVER DID IT WITH HEAT AND FENTANYL WHERE HE HAD TO BE REVIVED. IV FENTANYL GIVEN IN LOWER DOSE AND SLOW. HOME BIPAP APPLIED.
[2018-01-03 04:49] VITALS: BP 123/57
--- NOTE | 2018-01-03 07:05 | NUR ---
PT STATES IV PAIN MED NOT EFFECTIVE AT ALL. FINALLY ABLE TO FALL ASLEEP ABOUT 0430. HOME BIPAP ON WITH O2 BLEED IN. TELEMETRY CONT TO SHOW SR. HS GOALS OF SAFETY OBTAINED BUT NOT ABLE TO GET COMFORTABLE. HOURLY ROUNDING OBSERVED.
[2018-01-03 08:00] VITALS: BP 137/76
--- NOTE | 2018-01-03 09:00 | NUR ---
vss, ASSUMED CARE IN THE AM, ASSESSMENT PEFORMED AND CHARTED, FALL PRECAUTIONS IN PLACE AND CALL IN REACH, PT IS UP WITH ONE AND ON BIPAP AND IS A&O4 AND STATES PAIN IN HIS BACK, OUT OF 0-10 AT THIS TIME, PT GOAL IS TO IMPROVE BREATHING AND SIT UP IN CAHIR, WILL FOLLOW WITH PLAN OF CARE. PT IS TRACING SR ON THE MONITOR.
--- NOTE | 2018-01-03 11:56 | NUR ---
MET WITH PT AND TO DISCUSS HOME SITUATION/DC PLANNING. PT KNOWN TO [facility]. PT LIVES WITH , DTR LIVES CLOSEBY AND IS SUPPORTIVE. ASSISTS PT NEEDED WITH ADLS. HE USES O2 3L THRU [facility] WITH BIPAP AND 3L AT NIGHT. HAS NEBULIZER, WALKER, POWER W/C AND O2 SAT METER. PT JUST ESTABLISHED WITH NEW DR DOMINGO AT [facility] IN [place]. HE STATES HE WAS DOING FAIRLY WELL UNTIL YESTERDAY WHEN SAID O2 SATS DROPPED. PT IMPROVED TODAY. REPORTS SHE IS CALLING [facility] TO GET MORE O2 TANKS, THEY USE [facility] THRU [place]. DENIES ANY DC NEEDS. WILL FOLLOW
[2018-01-03 12:27] VITALS: BP 124/72
--- NOTE | 2018-01-03 14:37 | EKG ---
[place] [address] ELECTROCARDIOGRAM REPORT Name: FLACA BACON Room: [address] ADM IN .R.#: [id number] Admission: 01/02/18 Attend Phys: Teofilo Moody MD Discharge: Date of : 65 Report #: [id number] THIS REPORT FOR: //name// [facility] ED Test Date: 2018-01-02 Test Time: 19:07:17 Pat Name: FLACA BACON Department: Room: 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
[2018-01-03 15:07] LABS: URINE BILIRUBIN NEGATIVE (Negative); URINE BLOOD NEGATIVE (Negative); URINE CLARITY CLEAR; URINE COLOR STRAW; URINE GLUCOSE-RANDOM 3+ (Negative); URINE KETONES NEGATIVE (Negative); URINE LEUKOCYTES-REFLEX NEGATIVE (Negative); URINE NITRITE-REFLEX NEGATIVE (Negative); URINE PROTEIN NEGATIVE (Negative); URINE SPECIFIC GRAVITY <= 1.005 (1.005-1.030); URINE UROBILINOGEN 0.2 E.U./dl (0.2-1.0)
[2018-01-03 16:24] VITALS: BP 129/77
--- NOTE | 2018-01-03 17:43 | NUR ---
VSS, PT IS TRACING SR ON THE MONITOR AND IS ON 3L NC, IS UP IN THE CHAIR AND IS A&O4, PT IS PROGESSING TOWARDS GOAL AND IS PLANNING TO D/C TO TOMORROW, HOURLY ROUNDS COMPLETED WILL FOLLOW WITH PLAN OF CARE AND NO OTHER STATUS CHANGE NOTIED AT THIS TIME.
[2018-01-03 20:00] VITALS: BP 124/69
[2018-01-03 21:34] LABS: CALCIUM 8.8 mg/dL (8.5-10.1); CREATININE 1.7 mg/dL (0.6-1.3); POTASSIUM 4.2 mmol/L (3.5-5.1)
[2018-01-04] VITALS: BP 117/64
[2018-01-04 04:00] VITALS: BP 134/76
--- NOTE | 2018-01-04 06:17 | NUR ---
ASSUMED PT CARE AT 1930, PT IS A&OX4, TRACING NSR ON THE MONITOR, PT IS ON 5L NC SATTING MID TO HIGH 90'S. AND HE WEARS A TRIOLOGY AT [facility]. PT'S BG WAS ELEVATED THIS SHIFT, PRN AND TOBIAS INSULIN GIVEN THROUGHOUT THE SHIFT. PT'S BG STILL ELEVATED AT THIS TIME. PT IS UP STB TO THE BR, BED IN LOW POSITION, CALL LIGHT IN REACH. PT C/O PAIN, PRN PAIN MEDICATIONS GIVEN PER DEC. HOURLY ROUNDING COMPLETED FOR PT SAFETY.
--- NOTE | 2018-01-04 07:26 | NUR ---
Doctor luther notified of high blood sugars, see orders.
[2018-01-04 08:00] VITALS: BP 124/64
[2018-01-04] MEDS ORDERED: HUMALOG100 UNIT/1 SUBQ (08:50)
[2018-01-04] MEDS ORDERED: SINGULAIR 10 MG10 M1 PO (08:50)
[2018-01-04] MEDS ORDERED: PULMICORT0.5 MG/22 INH (08:50)
[2018-01-04] MEDS ORDERED: DUONEB 2.5-0.5 M3 ML INH (08:50)
[2018-01-04 10:51] VITALS: BP 124/64
--- NOTE | 2018-01-04 12:39 | NUR ---
ORDER RECEIVE DOT DISCHARGE PATIENT TO SELF CARE AT HOME. MED REC, MEDICATION EDUCATION, STROKE EDUCATION, AND NEED FOR FOLLOW UP APPOINMTNET WITH PULMONOLOGY COVERED AND STAYTES UBNDERSTOOD BY PATIENT. IV AND TELEMTRY DC'D. PAITNET TAKEN BY IVAN=HAIR TO AWAITNG CAR WITH SPOUSE PRESENT. HOULRY ROUNDING COMPLETED FOR PATIENT SAFETY. DC TIME OF 12:30.
--- NOTE | 2018-01-05 11:00 | NUR ---
RADHA received a phone call from [facility] [phone], per Eber, Pt's called to inform them that Pt now requires 5L of o2. CM checked Pt's chart, reviewed RT note, and spoke with nurse from yesterday, none of these sources confirm that Pt requires that amount of oxygen. Updated Pt's and informed that Pt needs to f/u with his PCP.
== END 2018-01-04 12:15 | disposition home or self-care (01) | DRG 189 ==
LOC: M.ERS 18:37 → M.TBA-ER 20:47 → M.2W 21:56
PROVIDERS: Family Medicine; ADMIT Internal Medicine
PROC: 5A09357 Assistance with Respiratory Ventilation, Less than 24 Consecutive Hours, Continuous Positive Airway Pressure (ICD-10-PCS; principal; 2018-01-03)
DX: J96.21 Acute and chronic respiratory failure with hypoxia (principal); E66.2 Morbid (severe) obesity with alveolar hypoventilation; J98.11 Atelectasis; I50.32 Chronic diastolic (congestive) heart failure; I13.0 Hypertensive heart and chronic kidney disease with heart failure and stage 1 through stage 4 chronic kidney disease, or unspecified chronic kidney disease; E87.2 Acidosis; Z68.44 Body mass index [BMI] 60.0-69.9, adult; J44.9 Chronic obstructive pulmonary disease, unspecified; F41.9 Anxiety disorder, unspecified; K21.9 Gastro-esophageal reflux disease without esophagitis; F20.9 Schizophrenia, unspecified; F31.9 Bipolar disorder, unspecified; G25.81 Restless legs syndrome; L40.9 Psoriasis, unspecified; E11.22 Type 2 diabetes mellitus with diabetic chronic kidney disease; N18.9 Chronic kidney disease, unspecified; Z88.1 Allergy status to other antibiotic agents; Z88.2 Allergy status to sulfonamides; Z88.8 Allergy status to other drugs, medicaments and biological substances; Z79.4 Long term (current) use of insulin; Z79.899 Other long term (current) drug therapy; Z87.01 Personal history of pneumonia (recurrent)

== ENCOUNTER 2018-05-29 12:07 | Emergency (ER) | payer MEDICAID ==
[~2018-05-29] VITALS: Ht 182.9 cm; Wt 204.1 kg
[~2018-05-29 12:07] MED LIST changes: +DUONEB 2.5-0.5 M3 ML INH; +HUMALOG100 UNIT/1 SUBQ; +PULMICORT0.5 MG/22 INH; +SINGULAIR 10 MG10 M1 PO
[2018-05-29 12:49] LABS: ABSOLUTE EOSINOPHILS 0.1 thou/uL (0.0-0.7); ABSOLUTE MONOCYTES 0.5 thou/uL (0.0-1.2); ABSOLUTE NEUTROPHILS 4.4 thou/uL (1.6-8.1); BASOPHILS 0.5 %; EOSINOPHILS 1.3 %; HEMATOCRIT 38.3 % (42.0-52.0); HEMOGLOBIN 12.8 gm/dL (14.0-18.0); LYMPHOCYTES 28.2 %; MCH 31.6 pg (26.0-34.0); MCHC 33.4 g/dL (28.0-37.0); MCV 94.6 fL (80.0-100.0); MONOCYTES 7.2 %; MPV 9.1 fl. (7.2-11.1); NUCLEATED RBCS 0 /100WBC; PLATELET COUNT* 195 thou/uL (150-400); POLYS 62.8 %; RBC 4.05 mil/uL (4.50-6.00); WBC 7.1 thou/uL (4.0-11.0)
[2018-05-29 13:01] LABS: URINE BILIRUBIN NEGATIVE (Negative); URINE BLOOD NEGATIVE (Negative); URINE CLARITY CLEAR; URINE COLOR YELLOW; URINE GLUCOSE-RANDOM NEGATIVE (Negative); URINE KETONES NEGATIVE (Negative); URINE LEUKOCYTES-REFLEX NEGATIVE (Negative); URINE NITRITE-REFLEX NEGATIVE (Negative); URINE PROTEIN NEGATIVE (Negative); URINE SPECIFIC GRAVITY <= 1.005 (1.005-1.030); URINE UROBILINOGEN 0.2 E.U./dl (0.2-1.0)
[2018-05-29 13:06] LABS: CALCIUM 8.1 mg/dL (8.5-10.1); CREATININE 1.4 mg/dL (0.6-1.3); POTASSIUM 3.6 mmol/L (3.5-5.1)
[2018-05-29 13:11] LABS: ALBUMIN 3.2 g/dL (3.4-5.0); TOTAL BILIRUBIN 0.2 mg/dL (<0.1-1.0); TOTAL PROTEIN 7.3 g/dL (6.4-8.2)
[2018-05-29] MEDS ORDERED: FLEXERIL PO (14:10)
[2018-05-29 14:22] VITALS: BP 111/55
== END 2018-05-29 14:22 | disposition home or self-care (01) ==
LOC: M.ERS 12:07
PROVIDERS: Nurse Practitioner Family
DX: S23.3XXA Sprain of ligaments of thoracic spine, initial encounter (principal); V49.09XA Driver injured in collision with other motor vehicles in nontraffic accident, initial encounter; Y93.89 Activity, other specified; Y92.89 Other specified places as the place of occurrence of the external cause; Y99.8 Other external cause status; J44.9 Chronic obstructive pulmonary disease, unspecified; I11.0 Hypertensive heart disease with heart failure; I50.9 Heart failure, unspecified; K21.9 Gastro-esophageal reflux disease without esophagitis; E11.9 Type 2 diabetes mellitus without complications; F20.9 Schizophrenia, unspecified; F41.9 Anxiety disorder, unspecified; Z87.01 Personal history of pneumonia (recurrent); Z88.2 Allergy status to sulfonamides; Z88.5 Allergy status to narcotic agent; Z88.1 Allergy status to other antibiotic agents; Z88.8 Allergy status to other drugs, medicaments and biological substances

== ENCOUNTER 2018-09-22 16:14 | Inpatient (IN) | payer MEDICAID ==
[~2018-09-22] VITALS: Ht 182.9 cm; Wt 209.6 kg
[2018-09-22 16:18] VITALS: BP 196/90
--- NOTE | 2018-09-22 16:20 | NUR ---
CHEST PAIN X 2 DAYS PATIENT STATES THIS MORNING WHEN HE WOKE UP HE WAS HAVING SOME INCREASING CHEST PAIN DENIES N/V, +DYSPNEA, -DIAPHORESIS PT ALERT/AGE APPROPRIATE
[2018-09-22 17:01] LABS: ABSOLUTE EOSINOPHILS 0.1 thou/uL (0.0-0.7); ABSOLUTE MONOCYTES 0.5 thou/uL (0.0-1.2); ABSOLUTE NEUTROPHILS 5.5 thou/uL (1.6-8.1); BASOPHILS 0.4 %; EOSINOPHILS 0.8 %; HEMATOCRIT 41.4 % (42.0-52.0); HEMOGLOBIN 13.6 gm/dL (14.0-18.0); MCH 31.2 pg (26.0-34.0); MCHC 32.9 g/dL (28.0-37.0); MCV 94.8 fL (80.0-100.0); MONOCYTES 5.6 %; MPV 9.8 fl. (7.2-11.1); NUCLEATED RBCS 0 /100WBC; PLATELET COUNT* 181 thou/uL (150-400); POLYS 68.2 %; RBC 4.36 mil/uL (4.50-6.00); RDW-CV 14.8 % (10.5-14.5); WBC 8.1 thou/uL (4.0-11.0)
[2018-09-22 17:07] LABS: ANION GAP 9 mmol/L (7-16); BUN 19 mg/dL (7-18); CALCIUM 8.8 mg/dL (8.5-10.1); CHLORIDE 104 mmol/L (98-107); CO2 28 mmol/L (21-32); CREATININE 1.4 mg/dL (0.6-1.3); GLUCOSE 114 mg/dL (70-99); POTASSIUM 3.7 mmol/L (3.5-5.1); PROTIME 9.8 Seconds (9.20-11.50); SODIUM 141 mmol/L (136-145)
[2018-09-22] MEDS ORDERED: GLUCOTROL5 MG PO (17:07)
[2018-09-22] MEDS ORDERED: METFORMIN HCL500 MG PO (17:08)
[2018-09-22] MEDS ORDERED: FLOMAX0.4 MG PO (17:09)
[2018-09-22] MEDS ORDERED: HUMULINR100 SUBQ (17:09)
[2018-09-22] MEDS ORDERED: COZAAR 25 MG TA25 M1 PO (17:09)
[2018-09-22] MEDS ORDERED: PROAIR HFA8.5 GM INH (17:10)
[2018-09-22] MEDS ORDERED: ROBAXIN 750 MG750 M1 PO (17:10)
[2018-09-22] MEDS ORDERED: ZANAFLEX2 MG PO (17:10)
[2018-09-22] MEDS ORDERED: ACETAZOLAMIDE125 MG PO (17:11)
--- NOTE | 2018-09-22 17:14 | NUR ---
ATTEMPTED MULTIPLE IV STARTS WITH PATIENT PHYSICIAN AWARE OF DIFFICULT ACCESS AND IS ATTMEPTED IV START WITH THE ULTRASOUND MACHINE.
[2018-09-22 17:18] LABS: ALBUMIN 3.6 g/dL (3.4-5.0); ALKALINE PHOSPHATASE 139 U/L (46-116); LIPASE 121 U/L (73-393); NT-PRO BRAIN NAT PEPTIDE 28 pg/mL (<300); SGOT 12 U/L (15-37); SGPT 18 U/L (30-65); TOTAL BILIRUBIN 0.3 mg/dL (<0.1-1.0); TOTAL PROTEIN 7.7 g/dL (6.4-8.2); TROPONIN-I LEVEL <0.06 ng/mL (<0.06)
[2018-09-22 21:00] VITALS: BP 153/62
[2018-09-22 21:15] VITALS: BP 155/99
[2018-09-22] MEDS ORDERED: HUMALOG100 UNIT/1 SUBQ (21:41)
[2018-09-22] MEDS ORDERED: PROZAC20 MG PO (21:41)
[2018-09-23] VITALS: BP 133/76
[2018-09-23 04:00] VITALS: BP 135/75
--- NOTE | 2018-09-23 05:35 | NUR ---
ASSUMED CARE OF PT AT 1900. PT IS ALERT AND ORIENTED. VSS. PERRLA. PT REPORTS PAIN IN CHEST WHEN BREATHING DEEPLY. PT IS IN SINUS RYTHM. AT 0512 PT HAD SOME A FLUTTER. PT IS SLEEPING COMFORTABLY IN BED. RESPIRATIONS ARE EVEN AND NONLABORED. WILL CONTINUE TO MONITOR PT.
[2018-09-23 08:00] VITALS: BP 173/82
--- NOTE | 2018-09-23 10:58 | NUR ---
MET WITH PT AND TO DISCUSS HOME SITUATION/DC PLANNING. PT LIVES WITH , USES POWER CHAIR, O2, NEB AND BIPAP THRU [facility]. HE FOLLOWS WITH [facility] [place]. ASSISTS WITH ADLS NEEDED, PT IS FAIRLY INDEPENDENT. DENIES DC NEEDS AT THIS TIME. TO HAVE STRESS TEST TODAY. WILL FOLLOW
[2018-09-23 12:00] VITALS: BP 144/71
--- NOTE | 2018-09-23 12:51 | NUR ---
ASSUMED CARE OF PATIENT THIS AM AT 0730. PATIENT IS ALERT AND ORIENTED X 4. HE DENIES CHEST PAIN THIS AM. PATIENT C/O IDIGESTION. DR NOTIFIED AND PATIENT GIVE A TUMS X 1. PATIENT ASSISTED UP TO THE CHAIR BY PT. HE HAS BEEN KEPT NPO FOR ORDERED STRESS TEST. FSBS MONITORED. PATIENT KEPT ON O2 AT 2 LITERS AND HIS SATS HAVE REMAINED WNL. TELE SHOWS NSR IN THE 60S. WILL CONTINUE TO MONITOR.
--- NOTE | 2018-09-23 12:53 | NUR ---
Nutrition: Pt to get stress test today. Seen for OBE. Wt: 462#. CHO controlled diet. H/o schizo, CKD III. Uses bipap. Alb 3.6, BG 147. Appears at low nutrition risk, per point system.
[2018-09-23 16:03] VITALS: BP 145/86
--- NOTE | 2018-09-23 16:10 | EXE ---
[place] [address] STRESS ECHOCARDIOGRAM Name: FLACA BACON Room: [address] IN [facility]#: [id number] Admission: 09/22/18 Attend Phys: Linda Blackwell, Discharge: Date of : 65 Date of Service: 09/23/18 1609 Report #: [id number] THIS REPORT FOR: //name// APPROVED REPORT Study performed: 09/23/2018 13:44:23 Exam: Dobutamine Stress Echo Indication: Chest pain , Dyspnea Patient Location: In-Patient Stress Nurse: Mila Dow RN Room #: 229 Supervising Physician: Jeff Osborn MD Status: routine Ht: 6 ft 0 in HR: 84 bpm BP: 192/91 mmHg Rhythm: NSR Medical History Medical History: Stroke/TIA, CHF Cardiac Risk Factors: HTN, DM, FHX of CAD Procedure The patient underwent a Pharmacological Stress Test using Dobutamine. Blood pressure, heart rate, and EKG were monitored. An Echocardiogram was performed by coil repair technician in four stages in quad fashion. At peak stress, four selected images were obtained and placed side by side with resting images for comparison. Echo Enhancing Agent Indication: Endocardial border delineation Agent(s) / Amount(s) Used: Optison 10 cc Stress Test Details Stress Test: Pharmacological Stress Test using Dobutamine. Reason for pharmacologic stress test: physical limitation. HR Resting HR: 84 bpm Max Heart Rate (APMHR): 168 bpm Max HR Achieved: 143 bpm Target HR (85% APMHR): 142 bpm % of APMHR: 85 Recovery HR: 100 bpm HR response to stress: Normal [place] [address] STRESS ECHOCARDIOGRAM Name: FLACA BACON Room: [address]#: [id number] Admission: 09/22/18 Attend Phys: Linda Blackwell, Discharge: Date of : 65 Date of Service: 09/23/18 1609 Report #: [id number] Resting BP: 192/91 mmHg Max BP: 212/98 mmHg Recovery BP: 135/102 mmHg BP response to stress: Normal blood pressure response to stress. ECG Resting ECG: Sinus Rhythm Stress ECG: Sinus Tachycardia ST Change: None Arrhythmia: None Recovery ECG: Sinus Rhythm Recovery ST Change: None Recovery Arrhythmia: None Clinical Reason for Termination: Completed protocol The patient tolerated dobutamine infusion without significant symptoms. Start heart rate was not. Stress ECG Conclusion The baseline 12-lead EKG show sinus rhythm without significant ST or T wave abnormality. EKGs obtained during and post dobutamine infusion show sinus tachycardia and sinus rhythm with no significant ST or T wave changes when compared to baseline. Pre-Stress Echo The resting Echocardiogram showed normal left ventricular contractility with an estimated Ejection Fraction of about 55-60%. Post-Stress Echo The stress Echocardiogram showed normal left ventricular contractility with an estimated Ejection Fraction of about >70%. Conclusion Clinical Response: Non-ischemic Stress ECG Response: Non-ischemic Stress Echo Images: Non-ischemic This is a low risk study. Other Information Technically limited study due to body habituspoor [place] [address] STRESS ECHOCARDIOGRAM Name: FLACA BACON Room: [address]#: [id number] Admission: 09/22/18 Attend Phys: Linda Blackwell, Discharge: Date of : 65 Date of Service: 09/23/181608 Report #: [id number] <Conclusion> This is a low risk study. <ELECTRONICALLY SIGNED> By: Jeff Osborn MD, FACC 09/23/181608 08 08 Jeff Osborn MD, FACC /INF
--- NOTE | 2018-09-23 18:05 | EKG ---
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: [place] : 1965 Requested By: Phong Benedict Order Number: [id number] MD: Jeff Osborn Measurements Intervals [place] Rate: 74 P: [place]: QRS: -28 QRSD: 123 T: 53 QT: 401 QTc: 445 Interpretive Statements Atrial fibrillation Nonspecific intraventricular conduction delay Baseline wander in lead(s) I,V2 Compared to ECG 01/02/2018 19:07:17 Intraventricular conduction delay now present Sinus rhythm no longer present Electronically Signed On 09-23-2018 18:05:02 SONG AND DANCE PERFORMER by Jeff Osborn [email or web address] <ELECTRONICALLY SIGNED> By: Jeff Osborn MD, FACC 09/23/18 1805 1620 1620 Jeff Osborn MD, FACC /EPI
--- NOTE | 2018-09-23 18:06 | EKG ---
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
[2018-09-23 20:00] VITALS: BP 140/71
[2018-09-24] VITALS: BP 137/88
[2018-09-24 04:00] VITALS: BP 171/85
--- NOTE | 2018-09-24 06:04 | NUR ---
ASSUMED CARE OF PT AFTER REPORT AT 1930. PT A&OX4. VSS. PHYSICAL ASSESSMENT COMPLETED AND CHARTED. PT ON 02 AT 2L NC WITH 96% O2 SAT. PT TRACING SR 1ST DEG ON TELE. PT UPSTANDBY TO RESTROOM. PT REFUSED BIPAP LAST NIGHT. DENIES PAIN OR SOA. CALL LIGHT WITHIN REACH. BED IN LOW POSITION.
[2018-09-24 07:50] VITALS: BP 167/83
[2018-09-24 11:38] VITALS: BP 127/68
[2018-09-24 13:31] VITALS: BP 127/68
[2018-09-24 13:37] VITALS: BP 127/68
--- NOTE | 2018-09-24 13:46 | NUR ---
PT CARE ASSUMED AFTER REPORT. ASSESSMENT COMPLETE. SR/1ST DEGREE ON MONITOR. PT UP WITH STB TO BATHROOM. PT DISCHARGED HOME. COPY OF DISCHARGE INSTRUCTIONS TO PT WITH EXPLAINATION. PT VERBALIZED UNDERSTANDING. IV ACCESS REMOVED. PT TAKEN PER WHEELCHAIR TO THE MAIN ENTRANCE BY [employer] TO MEET HIS AND GO HOME.
== END 2018-09-24 13:47 | disposition home or self-care (01) | DRG 313 ==
LOC: M.ERS 16:14 → M.2W 17:29 → M.TBA-ER 17:29 → M.2W 19:15
PROVIDERS: Emergency Medicine; ADMIT Internal Medicine
PROC: 5A09357 Assistance with Respiratory Ventilation, Less than 24 Consecutive Hours, Continuous Positive Airway Pressure (ICD-10-PCS; principal; 2018-09-23)
DX: R07.9 Chest pain, unspecified (principal); E66.2 Morbid (severe) obesity with alveolar hypoventilation; I50.30 Unspecified diastolic (congestive) heart failure; I43 Cardiomyopathy in diseases classified elsewhere; Z68.44 Body mass index [BMI] 60.0-69.9, adult; I13.0 Hypertensive heart and chronic kidney disease with heart failure and stage 1 through stage 4 chronic kidney disease, or unspecified chronic kidney disease; J44.9 Chronic obstructive pulmonary disease, unspecified; F41.9 Anxiety disorder, unspecified; F31.9 Bipolar disorder, unspecified; K21.9 Gastro-esophageal reflux disease without esophagitis; G25.81 Restless legs syndrome; J45.909 Unspecified asthma, uncomplicated; E11.22 Type 2 diabetes mellitus with diabetic chronic kidney disease; F12.90 Cannabis use, unspecified, uncomplicated; N18.3 Chronic kidney disease, stage 3 (moderate); F20.9 Schizophrenia, unspecified; Z87.01 Personal history of pneumonia (recurrent); Z88.1 Allergy status to other antibiotic agents; Z88.2 Allergy status to sulfonamides; Z88.8 Allergy status to other drugs, medicaments and biological substances; Z79.82 Long term (current) use of aspirin; Z79.899 Other long term (current) drug therapy

== ENCOUNTER 2019-10-13 15:29 | Emergency (ER) | payer MEDICAID ==
[~2019-10-13] VITALS: Ht 182.9 cm; Wt 203.7 kg
[~2019-10-13 15:29] MED LIST changes: +ACETAZOLAMIDE125 MG PO; +COZAAR 25 MG TA25 M1 PO; +GLUCOTROL5 MG PO; +HUMULINR100 SUBQ; +PROAIR HFA8.5 GM INH; +ROBAXIN 750 MG750 M1 PO; +ZANAFLEX2 MG PO
[2019-10-13 16:08] LABS: ABSOLUTE BASOPHILS 0.1 thou/uL (0.0-0.2); ABSOLUTE EOSINOPHILS 0.1 thou/uL (0.0-0.7); ABSOLUTE LYMPHOCYTES 1.5 thou/uL (0.8-5.3); ABSOLUTE MONOCYTES 0.7 thou/uL (0.0-1.2); BASOPHILS 0.6 %; EOSINOPHILS 0.8 %; HEMATOCRIT 39.5 % (42.0-52.0); LYMPHOCYTES 13.1 %; MCH 32.2 pg (26.0-34.0); MCV 97.6 fL (80.0-100.0); MONOCYTES 6.1 %; MPV 9.2 fl. (7.2-11.1); NUCLEATED RBCS 0 /100WBC; PLATELET COUNT* 212 thou/uL (150-400); POLYS 79.4 %; RBC 4.05 mil/uL (4.50-6.00); RDW-CV 14.6 % (10.5-14.5); WBC 11.3 thou/uL (4.0-11.0)
[2019-10-13 16:17] LABS: CALCIUM 8.4 mg/dL (8.5-10.1); CREATININE 1.8 mg/dL (0.6-1.3); POTASSIUM 4.3 mmol/L (3.5-5.1)
[2019-10-13 16:21] LABS: ALBUMIN 3.3 g/dL (3.4-5.0); TOTAL BILIRUBIN 0.4 mg/dL (<0.1-1.0); TOTAL PROTEIN 7.8 g/dL (6.4-8.2)
[2019-10-13 16:42] LABS: URINE BILIRUBIN NEGATIVE (Negative); URINE BLOOD TRACE (Negative); URINE CLARITY CLEAR; URINE COLOR YELLOW; URINE GLUCOSE-RANDOM NEGATIVE (Negative); URINE KETONES NEGATIVE (Negative); URINE LEUKOCYTES-REFLEX NEGATIVE (Negative); URINE NITRITE-REFLEX NEGATIVE (Negative); URINE PROTEIN NEGATIVE (Negative); URINE UROBILINOGEN 0.2 E.U./dl (0.2-1.0)
[2019-10-13] MEDS ORDERED: LEVAQUIN 750 M750 MG PO (17:52)
[2019-10-13] MEDS ORDERED: DOXYCYCLINE 10100 M2 PO (18:53)
[2019-10-13 19:14] VITALS: BP 108/67
== END 2019-10-13 19:15 | disposition home or self-care (01) ==
LOC: M.ERS 15:29
PROVIDERS: Emergency Medicine Emergency Medical Services
DX: J18.9 Pneumonia, unspecified organism (principal); G47.30 Sleep apnea, unspecified; J44.9 Chronic obstructive pulmonary disease, unspecified; I13.0 Hypertensive heart and chronic kidney disease with heart failure and stage 1 through stage 4 chronic kidney disease, or unspecified chronic kidney disease; E11.22 Type 2 diabetes mellitus with diabetic chronic kidney disease; N18.3 Chronic kidney disease, stage 3 (moderate); I50.30 Unspecified diastolic (congestive) heart failure; L40.9 Psoriasis, unspecified; K21.9 Gastro-esophageal reflux disease without esophagitis; E66.9 Obesity, unspecified; Z68.44 Body mass index [BMI] 60.0-69.9, adult; Z88.1 Allergy status to other antibiotic agents; Z88.2 Allergy status to sulfonamides; Z88.6 Allergy status to analgesic agent; Z88.8 Allergy status to other drugs, medicaments and biological substances

== ENCOUNTER 2021-01-03 09:00 | Inpatient (IN) | payer MEDICAID ==
[~2021-01-03] VITALS: Ht 185.4 cm; Wt 94.7 kg
--- NOTE | ~2021-01-03 | EMS ---
[address] [address] EMS Patient Care Report Name: FLACA BACON Room: [address] IN [facility]#: [id number] Admission: 01/03/21 Attend Phys: Teofilo Moody MD Discharge: Date of : 65 Report #: [id number] THIS REPORT FOR: //name// Report Transmitted: 01/03/2021 13:17 EMS Care Summary [facility] [employer] [facility] [employer] [facility] Incident 21-0303 @ 01/03/2021 08:19 Incident Location [address] [place] [address] Patient FLACA BACON Male, 55 Years 1965 Patient Address [address] [place] [address] Patient History Congestive Heart Failure (CHF),Chronic Obstructive Pulmonary Disease (COPD),Dementia,Diabetes,Morbid Obesity, Patient Allergies Other drug allergy, Patient Medications Aripiprazole, Glipizide, Metoprolol, Losartan, Potassium, Tamsulosin, Hydralazine, Amlodipine, Doxepin, Fluoxetine, Gabapentin, Methocarbamol, ASA, Metformin, Furosemide, Atorvastatin, Acetazolamide, Ziprasidone, Omeprazole, Chief Complaint SOB Disposition Transported No Lights/[place] Dispatch Reason Breathing Problem Transported To [facility] Narrative Dispatched to a residence for 55y/o male SOB. Pt. was alert and oriented. Pt. [address] [address] EMS Patient Care Report Name: FLACA BACON Room: [address] IN [facility].#: [id number] Admission: 01/03/21 Attend Phys: Teofilo Moody MD Discharge: Date of : 65 Report #: [id number] has history of COPD and CHF, and is morbidly obese. Pt. color appeared normal and breathing appeared labored. Pt. stated that he has felt SOB for 2 days and it has progressively gotten worse. Breath sounds were crackles throughout and wheezes in upper [place]. Initial O2 sat. was 59% RA. Duo Neb was administered with some relief and second Albuterol administered also. O2 sat. elevated to 91% while breathing treatments were going. Pt. declined IV attempt during transport. Pt. was transported to [place] for emergency services. Initial Vitals @08:47 @08:31MI Suspected: false @08:48P: 85,R: 24,BP: 154/110,GCS: 15,SpO2: 91,Revised Trauma: 12, @08:38P: 85,R: 24,BP: 138/98,GCS: 15,SpO2: 89,Revised Trauma: 12, @08:28P: 97,R: 24,BP: 149/87,Pain: 0/10,GCS: 15,SpO2: 59,Revised Trauma: 12, Assessments @08:22MENTAL:No Abnormalities,SKIN:Other,HEENT:Head/Face: No Abnormalities,Eyes: No Abnormalities,Neck/Airway: No Abnormalities,LUNG SOUNDS:General: No Abnormalities,Left Upper: No Abnormalities,Right Upper: No Abnormalities,Left Lower: No Abnormalities,Right Lower: No Abnormalities,ABDOMEN:General: No Abnormalities,Left Upper: No Abnormalities,Right Upper: No Abnormalities,Left Lower: No Abnormalities,Right Lower: No Abnormalities,PELVIS//GI:No Abnormalities,EXTREMITIES:Left Arm: No Abnormalities,Right Arm: No Abnormalities,Left Leg: No Abnormalities,Right Leg: No Abnormalities,PULSE:NEURO:No Abnormalities, Impression Shortness of breath Procedures @08:35Oxygen FlowRate: 8 Device: Nebulizer Response: ImprovedSucceeded@08:3112-Lead ECGResponse: UnchangedSucceeded@08:4712-Lead ECGResponse: UnchangedSucceeded@08:35Duoneb - 3 Milligrams (mg) - Non-Rebreather MaskResponse: Improved@08:45Albuterol - 2.5 Milligrams (mg) - NebulizedResponse: Improved Timeline 08:16,Call Received 08:19,Dispatched 08:19,En Route 08:19,Initial Responder On Scene 08:19,On Scene 08:20,At Patient 08:28,BP: 149/87 M,PULSE: 97,RR: 24 R,SPO2: 59 Ox,ETCO2: ,BG: ,PAIN: 0,GCS: 15, 08:31,12-Lead ECG,Response: UnchangedSucceeded, 08:31,BP: / M,PULSE: ,RR: R,SPO2: Ox,ETCO2: ,BG: ,PAIN: ,GCS: , [place] [address] EMS Patient Care Report Name: FLACA BACON Room: [address] IN ..#: [id number] Admission: 01/03/21 Attend Phys: Teofilo Moody MD Discharge: Date of : 65 Report #: [id number] 08:34,Depart Scene 08:35,Duoneb - 3 Milligrams (mg) - Non-Rebreather Mask,Response: Improved 08:35,Oxygen FlowRate: 8 Device: Nebulizer Response: ImprovedSucceeded, 08:38,BP: 138/98 M,PULSE: 85,RR: 24 R,SPO2: 89 Ox,ETCO2: ,BG: ,PAIN: ,GCS: 15, 08:45,Albuterol - 2.5 Milligrams (mg) - Nebulized,Response: Improved 08:47,12-Lead ECG,Response: UnchangedSucceeded, 08:47,BP: / M,PULSE: ,RR: R,SPO2: Ox,ETCO2: ,BG: ,PAIN: ,GCS: , 08:48,BP: 154/110 M,PULSE: 85,RR: 24 R,SPO2: 91 Ox,ETCO2: ,BG: ,PAIN: ,GCS: 15, 08:56,At Destination 09:00,Transfer Patient 09:31,Call Closed 09:31,In District Disclaimer v1.1 Copyright 2020 [employer] This EMS Care Summary contains data elements from the applicable legal record (which may be displayed differently). It is designed to provide pertinent information for the following purposes: continuity of care, clinical quality, and state data reporting. The complete legal record is available to ED staff and administrators of the receiving hospital in [employer] Patient Tracker. All data is provided "as is."
[~2021-01-03 09:00] MED LIST changes: +DOXYCYCLINE 10100 M2 PO; +LEVAQUIN 750 M750 MG PO
[2021-01-03 09:03] VITALS: BP 122/76
[2021-01-03] MEDS ORDERED: TOPROL XL25 MG PO (09:11)
[2021-01-03] MEDS ORDERED: OMEPRAZOLE 20 M20 M1 PO (09:11)
[2021-01-03] MEDS ORDERED: GABAPENTIN800 M1 PO (09:12)
[2021-01-03 09:44] LABS: ABSOLUTE EOSINOPHILS 0.1 thou/uL (0.0-0.7); ABSOLUTE LYMPHOCYTES 1.2 thou/uL (0.8-5.3); ABSOLUTE MONOCYTES 0.4 thou/uL (0.0-1.2); ABSOLUTE NEUTROPHILS 6.2 thou/uL (1.6-8.1); BASOPHILS 0.6 %; EOSINOPHILS 0.7 %; HEMOGLOBIN 12.4 gm/dL (14.0-18.0); LYMPHOCYTES 15.6 %; MCH 30.3 pg (26.0-34.0); MCHC 31.1 g/dL (28.0-37.0); MCV 97.6 fL (80.0-100.0); MONOCYTES 5.1 %; NUCLEATED RBCS 0 /100WBC; PLATELET COUNT* 232 thou/uL (150-400); RBC 4.09 mil/uL (4.50-6.00); RDW-CV 15.9 % (10.5-14.5)
--- NOTE | 2021-01-03 10:29 | EKG ---
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: [facility] : 1965 Requested By: Hugo Higgins Order Number: [id number] MD: Sancho Mendoza Measurements Intervals [place] Rate: 83 P: [place]: QRS: -14 QRSD: 118 T: 69 QT: 413 QTc: 486 Interpretive Statements sinus rhythm late transition Nonspecific intraventricular conduction delay Nonspecific T abnormalities, lateral leads Baseline wander in lead(s) II,III,aVL,aVF,V3 Compared to ECG 09/23/2018 05:19:40 Intraventricular conduction delay now present T-wave abnormality now present Electronically Signed On 01-03-2021 10:29:28 CDT by Sancho Mendoza [email or web address] <ELECTRONICALLY SIGNED> By: Sancho Mendoza MD, FAC 01/03/21 1029 5 5 Sancho Mendoza MD, FAC /EPI
[2021-01-03 10:42] LABS: PROTIME 10.9 Seconds (9.20-11.50)
[2021-01-03 10:46] LABS: CALCIUM 7.8 mg/dL (8.5-10.1); CREATININE 1.4 mg/dL (0.6-1.3); POTASSIUM 3.8 mmol/L (3.5-5.1)
[2021-01-03 10:57] LABS: ALBUMIN 2.7 g/dL (3.4-5.0); MAGNESIUM 1.6 mg/dL (1.8-2.4); TOTAL BILIRUBIN 0.3 mg/dL (<0.1-1.0); TOTAL PROTEIN 7.2 g/dL (6.4-8.2)
[2021-01-03 12:45] VITALS: BP 102/60; BP 144/78
[2021-01-03 13:40] VITALS: BP 142/69
[2021-01-03 15:43] VITALS: BP 130/72
[2021-01-03] MEDS ORDERED: PERCOCET 10-321 EAC1 PO (17:11)
[2021-01-03] MEDS ORDERED: DIAZEPAM 10 MG10 M1 PO (17:12)
[2021-01-03 20:45] VITALS: BP 122/73
[2021-01-04] VITALS (9 sets, daily range): BP systolic 112–142; BP diastolic 51–89
[2021-01-04 01:54] LABS: BE 3.1 mmol/L (-2 to +3)
[2021-01-04 01:56] LABS: PCO2 68.1 mmHg (35.0-45.0); PO2 52.9 mmHg (75.0-100.0); pH 7.286 (7.340-7.450)
[2021-01-05 04:26] LABS: HEMATOCRIT 37.8 % (42.0-52.0); HEMOGLOBIN 11.8 gm/dL (14.0-18.0); MCH 30.4 pg (26.0-34.0); MCHC 31.3 g/dL (28.0-37.0); MCV 97.3 fL (80.0-100.0); MPV 9.1 fl. (7.2-11.1); RBC 3.89 mil/uL (4.50-6.00); RDW-CV 15.9 % (10.5-14.5)
[2021-01-05 04:40] LABS: CALCIUM 8.3 mg/dL (8.5-10.1); CREATININE 1.4 mg/dL (0.6-1.3); POTASSIUM 4.1 mmol/L (3.5-5.1)
[2021-01-05 04:47] VITALS: BP 109/63
[2021-01-05 08:00] VITALS: BP 142/53
[2021-01-05 12:00] VITALS: BP 112/58
[2021-01-05 16:08] VITALS: BP 110/59
[2021-01-05 23:49] VITALS: BP 140/65
[2021-01-06 04:10] VITALS: BP 129/63
[2021-01-06 04:14] LABS: HEMATOCRIT 36.9 % (42.0-52.0); HEMOGLOBIN 11.7 gm/dL (14.0-18.0); MCH 30.5 pg (26.0-34.0); MCHC 31.7 g/dL (28.0-37.0); MCV 96.5 fL (80.0-100.0); MPV 8.9 fl. (7.2-11.1); RBC 3.83 mil/uL (4.50-6.00); RDW-CV 15.7 % (10.5-14.5); WBC 8.7 thou/uL (4.0-11.0)
[2021-01-06 04:27] LABS: CALCIUM 8.8 mg/dL (8.5-10.1); CREATININE 1.2 mg/dL (0.6-1.3); POTASSIUM 4.1 mmol/L (3.5-5.1)
[2021-01-06 08:00] VITALS: BP 138/74
[2021-01-06] MEDS ORDERED: CEFUROXIME500 MG PO (09:45)
[2021-01-06 10:46] VITALS: BP 138/74
== END 2021-01-06 12:43 | disposition home or self-care (01) | DRG 177 ==
LOC: M.ERS 09:00 → M.2W 10:50 → M.TBA-ER 10:50 → M.2W 13:38
PROVIDERS: Emergency Medicine Emergency Medical Services; Family Medicine; Internal Medicine; ADMIT Internal Medicine; ATTEND Internal Medicine
PROC: 5A09357 Assistance with Respiratory Ventilation, Less than 24 Consecutive Hours, Continuous Positive Airway Pressure (ICD-10-PCS; principal; 2021-01-04)
PROC: 5A0935A Assistance with Respiratory Ventilation, Less than 24 Consecutive Hours, High Flow/Velocity Cannula (ICD-10-PCS; 2021-01-05)
PROC: 5A09357 Assistance with Respiratory Ventilation, Less than 24 Consecutive Hours, Continuous Positive Airway Pressure (ICD-10-PCS; 2021-01-06)
PROC: 5A0935A Assistance with Respiratory Ventilation, Less than 24 Consecutive Hours, High Flow/Velocity Cannula (ICD-10-PCS; 2021-01-06)
DX: J69.0 Pneumonitis due to inhalation of food and vomit (principal); I50.33 Acute on chronic diastolic (congestive) heart failure; J96.21 Acute and chronic respiratory failure with hypoxia; J44.1 Chronic obstructive pulmonary disease with (acute) exacerbation; E66.2 Morbid (severe) obesity with alveolar hypoventilation; I13.0 Hypertensive heart and chronic kidney disease with heart failure and stage 1 through stage 4 chronic kidney disease, or unspecified chronic kidney disease; Z20.822 Contact with and (suspected) exposure to COVID-19; N18.30 Chronic kidney disease, stage 3 unspecified; J44.9 Chronic obstructive pulmonary disease, unspecified; F41.9 Anxiety disorder, unspecified; F31.9 Bipolar disorder, unspecified; J45.909 Unspecified asthma, uncomplicated; K21.9 Gastro-esophageal reflux disease without esophagitis; G25.81 Restless legs syndrome; G20 Parkinson's disease; F20.9 Schizophrenia, unspecified; L40.9 Psoriasis, unspecified; E11.22 Type 2 diabetes mellitus with diabetic chronic kidney disease; Z68.27 Body mass index [BMI] 27.0-27.9, adult; Z88.2 Allergy status to sulfonamides; Z88.1 Allergy status to other antibiotic agents; Z88.8 Allergy status to other drugs, medicaments and biological substances; Z79.899 Other long term (current) drug therapy

== ENCOUNTER 2021-02-24 15:05 | Observation (INO) | payer MEDICAID ==
[~2021-02-24] VITALS: Ht 182.9 cm; Wt 211.8 kg
[~2021-02-24 15:05] MED LIST changes: +CEFUROXIME500 MG PO; +DIAZEPAM 10 MG10 M1 PO; +GABAPENTIN800 M1 PO; +OMEPRAZOLE 20 M20 M1 PO; +PERCOCET 10-321 EAC1 PO; +TOPROL XL25 MG PO
[2021-02-24 15:08] VITALS: BP 126/64
[2021-02-24 15:33] LABS: ABSOLUTE EOSINOPHILS 0.1 thou/uL (0.0-0.7); ABSOLUTE LYMPHOCYTES 1.2 thou/uL (0.8-5.3); ABSOLUTE MONOCYTES 0.4 thou/uL (0.0-1.2); ABSOLUTE NEUTROPHILS 4.4 thou/uL (1.6-8.1); BASOPHILS 0.5 %; EOSINOPHILS 1.8 %; HEMATOCRIT 38.9 % (42.0-52.0); HEMOGLOBIN 12.4 gm/dL (14.0-18.0); LYMPHOCYTES 19.9 %; MCH 30.6 pg (26.0-34.0); MCV 95.7 fL (80.0-100.0); MONOCYTES 7.1 %; MPV 8.5 fl. (7.2-11.1); NUCLEATED RBCS 0 /100WBC; PLATELET COUNT* 185 thou/uL (150-400); POLYS 70.7 %; RBC 4.07 mil/uL (4.50-6.00); RDW-CV 16.1 % (10.5-14.5); WBC 6.2 thou/uL (4.0-11.0)
[2021-02-24 15:44] LABS: CALCIUM 8.7 mg/dL (8.5-10.1); CREATININE 1.3 mg/dL (0.6-1.3); POTASSIUM 3.9 mmol/L (3.5-5.1)
[2021-02-24 15:54] LABS: ALBUMIN 3.1 g/dL (3.4-5.0); MAGNESIUM 1.5 mg/dL (1.8-2.4); TOTAL BILIRUBIN 0.3 mg/dL (<0.1-1.0); TOTAL PROTEIN 7.4 g/dL (6.4-8.2)
[2021-02-24 18:18] VITALS: BP 131/70
[2021-02-24 18:52] VITALS: BP 143/72
[2021-02-24 20:00] VITALS: BP 135/69
[2021-02-25 00:19] VITALS: BP 154/82
[2021-02-25 04:26] VITALS: BP 130/85
[2021-02-25 08:00] VITALS: BP 119/77
[2021-02-25] MEDS ORDERED: PROTONIX40 M2 PO (09:26)
[2021-02-25 09:39] VITALS: BP 130/85
--- NOTE | 2021-02-26 13:49 | EKG ---
[place] [address] ELECTROCARDIOGRAM REPORT Name: FLACA BACON Room: [address]#: [id number] Admission: 02/24/21 Attend Phys: aRdha Duncan MD Discharge: 02/25/21 Date of : 65 Date of Service: 02/24/21 1513 Report #: [id number] THIS REPORT FOR: //name// [facility] ED Test Date: 2021-02-24 Test Time: 15:13:32 Pat Name: FLACA BACON Department: Room: [facility] Gender: M Electric Container Tester: SIRI : 1965 Requested By: Hugo Higgins Order Number: [id number] MD: Andrew Medina Measurements Intervals [place] Rate: 69 P: -10 [place]: 59 QRS: -26 QRSD: 115 T: 49 QT: 414 QTc: 444 Interpretive Statements Sinus rhythm Short [place] interval Nonspecific intraventricular conduction delay Baseline wander in lead(s) V2 Compared to ECG 01/03/2021 09:16:41 Short [place] interval now present T-wave abnormality no longer present Electronically Signed On 02-26-2021 13:49:32 CDT by Andrew Medina [email or web address] <ELECTRONICALLY SIGNED> By: Andrew Medina MD, [facility] 02/26/21 1349 1513 1513 Andrew Medina MD, [facility] /EPI
== END 2021-02-25 10:00 | disposition home or self-care (01) ==
LOC: M.ERS 15:05 → M.TBA-ER 17:16 → M.2W 18:19
PROVIDERS: Emergency Medicine Emergency Medical Services; ADMIT Family Medicine; ATTEND Family Medicine
DX: R07.89 Other chest pain (principal); Z20.822 Contact with and (suspected) exposure to COVID-19; I13.0 Hypertensive heart and chronic kidney disease with heart failure and stage 1 through stage 4 chronic kidney disease, or unspecified chronic kidney disease; E11.22 Type 2 diabetes mellitus with diabetic chronic kidney disease; I50.33 Acute on chronic diastolic (congestive) heart failure; E78.5 Hyperlipidemia, unspecified; J44.9 Chronic obstructive pulmonary disease, unspecified; F41.9 Anxiety disorder, unspecified; F31.9 Bipolar disorder, unspecified; K21.9 Gastro-esophageal reflux disease without esophagitis; J96.11 Chronic respiratory failure with hypoxia; G20 Parkinson's disease; F20.9 Schizophrenia, unspecified; G25.81 Restless legs syndrome; L40.9 Psoriasis, unspecified; Z79.899 Other long term (current) drug therapy; Z68.44 Body mass index [BMI] 60.0-69.9, adult

== ENCOUNTER 2021-10-02 09:48 | Emergency (ER) | payer MEDICAID ==
[~2021-10-02] VITALS: Ht 182.9 cm; Wt 156.5 kg
--- NOTE | ~2021-10-02 | EMS ---
[facility] [address] [place] [address] EMS Patient Care Report Name: [facility]AC[id number] Admission: 10/02/21 Attend Phys: Discharge: Date of : 65 Report #: [id number] THIS REPORT FOR: //name// Report Transmitted: 10/02/2021 10:08 EMS Care Summary [employer] [facility] Incident 21-1321 @ 10/02/2021 08:57 Incident Location [address] [place] [address] Patient FLACA BACON Male, 56 Years 1965 Patient Address [address] [place] [address] Patient History Asthma,Congestive Heart Failure (CHF),Chronic Obstructive Pulmonary Disease (COPD),Dementia,Parkinson's Disease,Bipolar II Disorder,Schizophrenia,Diverticulitis, Patient Allergies Other drug allergy, Patient Medications Tamsulosin, Furosemide, Hydralazine, Metformin, Methocarbamol, Atorvastatin, Ziprasidone, Metoprolol, Aripiprazole, Chief Complaint Shortness of Breath Disposition Transported No Lights/[place] Dispatch Reason Breathing Problem Transported To [facility] Narrative Med 1 and Engine 1 was dispatched for a [age] year-old male c/o shortness [address] [address] EMS Patient Care Report Name: FLACA BACON Room: [facility]#: [id number] Admission: 10/02/21 Attend Phys: Discharge: Date of : 65 Report #: [id number] of breath. Upon arrival, patient was sitting on the edge of his bed he had a finger pulse oximeter on that was reading 84%. Patient was on at home Oxygen at 6 lpm via nasal cannula patient had audible chest congestion. Patient was placed on EMS Oxygen at 15 lpm via NRB. Patient's Oxygen saturation improved to 100%. Patient reports that he has had both vaccines for COVID 19. He was assisted to a standing position and pivoted to stair chair and moved to the stretcher and secured via seatbelts and moved to the ambulance without incident. In the ambulance, patient was placed on capnography, vitals were obtained, patient was place don the 12 lead EKG. IV access was attempted 2 x without success. Blood glucose was obtained with a result of 156 mg.dL. Med 1 went en route to [facility]. Patient was monitored through out transport. Hospital report was given via radio with no questions or orders requested or received. Med 1 arrived at the hospital. Patient was moved into the ER via stretcher to room 15 without incident. Patient care was transferred to ER staff. Med 1 returned back into service. [id number] [place] Initial Vitals @09:31P: 143,R: 26,BP: 162/86,EtCO2: 51,SpO2: 100, @09:14P: 83,R: 25,EtCO2: 60,SpO2: 100, @09:25R: 22,GCS: 15,Glucose: 156,SpO2: 84, @09:13P: 85,R: 28,GCS: 15,EtCO2: 60,SpO2: 100, @09:15P: 86,R: 25,BP: 142/77,GCS: 15,EtCO2: 47,SpO2: 100,Revised Trauma: 12, Impression Shortness of breath Procedures @09:18 IV Therapy - cc (20 ga) Site: Forearm-Right Response: UnchangedFailed @09:20 IV Therapy - cc (20 ga) Site: Antecubital-Right Response: UnchangedFailed @09:13 Oxygen FlowRate: 15 Device: Non Re-breather Mask (NRB) Response: ImprovedSucceeded @09:23 12-Lead ECG Response: UnchangedSucceeded @09:23 12-Lead ECG Timeline 08:57,[place] [address] EMS Patient Care Report Name: FLACA BACON Room: [facility]#: [id number] Admission: 10/02/21 Attend Phys: Discharge: Date of : 65 Report #: [id number] 08:57,Dispatched 08:58,En Route 08:59,On Scene 09:00,At Patient 09:13,Oxygen FlowRate: 15 Device: Non Re-breather Mask (NRB) Response: ImprovedSucceeded, 09:13,BP: / M,PULSE: 85,RR: 28 R,SPO2: 100 Ox,ETCO2: 60 ,BG: ,PAIN: ,GCS: 15, 09:14,BP: / M,PULSE: 83,RR: 25 R,SPO2: 100 Ox,ETCO2: 60 ,BG: ,PAIN: ,GCS: , 09:15,BP: 142/77 M,PULSE: 86,RR: 25 R,SPO2: 100 Ox,ETCO2: 47 ,BG: ,PAIN: ,GCS: 15, 09:17,Depart Scene 09:18,IV Therapy - cc 20 ga Site: Forearm-Right,Response: UnchangedFailed, 09:20,IV Therapy - cc 20 ga Site: Antecubital-Right,Response: UnchangedFailed, 09:23,12-Lead ECG,Response: UnchangedSucceeded, 09:23,12-Lead ECG, 09:25,BP: / M,PULSE: ,RR: 22 R,SPO2: 84 Ox,ETCO2: ,B,PAIN: ,GCS: 15, 09:31,BP: 162/86 M,PULSE: 143,RR: 26 R,SPO2: 100 Ox,ETCO2: 51 ,BG: ,PAIN: ,GCS: , 09:39,At Destination 10:18,Call Closed 10:18,In District Disclaimer v1.1 Copyright 2020 [employer] This EMS Care Summary contains data elements from the applicable legal record (which may be displayed differently). It is designed to provide pertinent information for the following purposes: continuity of care, clinical quality, and state data reporting. The complete legal record is available to ED staff and administrators of the receiving hospital in [employer]'s Patient Tracker. All data is provided "as is."
[~2021-10-02 09:48] MED LIST changes: +PROTONIX40 M2 PO
[2021-10-02] MEDS ORDERED: OXYCODONE HCL E10 MG PO (09:59)
[2021-10-02 10:47] LABS: ABSOLUTE EOSINOPHILS 0.1 thou/uL (0.0-0.7); ABSOLUTE LYMPHOCYTES 1.2 thou/uL (0.8-5.3); ABSOLUTE MONOCYTES 0.5 thou/uL (0.0-1.2); ABSOLUTE NEUTROPHILS 4.5 thou/uL (1.6-8.1); BASOPHILS 0.4 %; EOSINOPHILS 1.5 %; HEMATOCRIT 35.9 % (42.0-52.0); HEMOGLOBIN 11.4 gm/dL (14.0-18.0); LYMPHOCYTES 19.2 %; MCH 29.3 pg (26.0-34.0); MCHC 31.7 g/dL (28.0-37.0); MCV 92.3 fL (80.0-100.0); MONOCYTES 7.5 %; MPV 9.1 fl. (7.2-11.1); NUCLEATED RBCS 0 /100WBC; PLATELET COUNT* 209 thou/uL (150-400); POLYS 71.4 %; RBC 3.89 mil/uL (4.50-6.00); RDW-CV 16.2 % (10.5-14.5); WBC 6.3 thou/uL (4.0-11.0)
[2021-10-02 10:55] LABS: INFLUENZA A ANTIGEN Negative (Negative); INFLUENZA B ANTIGEN Negative (Negative)
[2021-10-02 11:03] LABS: CALCIUM 8.1 mg/dL (8.5-10.1); CREATININE 1.2 mg/dL (0.6-1.3); POTASSIUM 3.7 mmol/L (3.5-5.1)
[2021-10-02 11:09] LABS: ALBUMIN 2.8 g/dL (3.4-5.0); MAGNESIUM 1.8 mg/dL (1.8-2.4); TOTAL BILIRUBIN 0.3 mg/dL (<0.1-1.0); TOTAL PROTEIN 7.2 g/dL (6.4-8.2)
[2021-10-02] MEDS ORDERED: PREDNISONE50 MG PO (12:04)
[2021-10-02] MEDS ORDERED: DOXYCYCLINE 10100 M2 PO (12:04)
[2021-10-02] MEDS ORDERED: AUGMENTIN 875-1 EACH PO (12:04)
[2021-10-02 13:09] VITALS: BP 138/60
--- NOTE | 2021-10-02 15:42 | EKG ---
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: [facility] : 1965 Requested By: Hugo Higgins Order Number: [id number] MD: Andrew Medina Measurements Intervals [place] Rate: 81 P: 4 RI: 219 QRS: -24 QRSD: 119 T: 54 QT: 398 QTc: 462 Interpretive Statements Sinus rhythm Prolonged [place] interval Nonspecific intraventricular conduction delay Compared to ECG 02/24/2021 15:13:32 First degree AV block now present Short [place] interval no longer present Electronically Signed On 10-02-2021 15:41:43 RESIDENTIAL ASSISTANT by Andrew Medina [email or web address] <ELECTRONICALLY SIGNED> By: Andrew Medina MD, FAC 10/02/21 1541 1006 1006 Andrew Medina MD, [facility] /EPI
== END 2021-10-02 13:10 | disposition home or self-care (01) ==
LOC: M.ERS 09:48
PROVIDERS: Emergency Medicine Emergency Medical Services
DX: J18.9 Pneumonia, unspecified organism (principal); Z20.822 Contact with and (suspected) exposure to COVID-19; J44.9 Chronic obstructive pulmonary disease, unspecified; I11.0 Hypertensive heart disease with heart failure; I50.30 Unspecified diastolic (congestive) heart failure; E11.9 Type 2 diabetes mellitus without complications; F41.9 Anxiety disorder, unspecified; E66.9 Obesity, unspecified; F31.9 Bipolar disorder, unspecified; F20.9 Schizophrenia, unspecified; K21.9 Gastro-esophageal reflux disease without esophagitis; L40.9 Psoriasis, unspecified; G20 Parkinson's disease; Z79.899 Other long term (current) drug therapy; Z79.82 Long term (current) use of aspirin; Z68.42 Body mass index [BMI] 45.0-49.9, adult; Z88.1 Allergy status to other antibiotic agents; Z88.8 Allergy status to other drugs, medicaments and biological substances; Z88.2 Allergy status to sulfonamides

== ENCOUNTER 2021-11-13 11:30 | Emergency (ER) | payer MEDICAID ==
[~2021-11-13] VITALS: Ht 182.9 cm; Wt 202.3 kg
--- NOTE | ~2021-11-13 | EMS ---
[facility] [address] [place] [address] EMS Patient Care Report Name: FLACA BACON Room: [facility] Loyda#: [id number] Admission: 11/13/21 Attend Phys: Discharge: 11/13/21 Date of : 65 Report #: [id number] THIS REPORT FOR: //name// Report Transmitted: 11/14/2021 13:39 EMS Care Summary [facility] Incident [phone] @ 11/13/2021 10:49 Incident Location [address] [place] [address] Patient FLACA BACON Male, 56 Years 1965 Patient Address [address] [place] [address] Patient History Congestive Heart Failure (CHF),Dementia,Hypertension (HTN),Parkinson's Disease, Patient Allergies Sulfa, Patient Medications Tamsulosin, Atorvastatin, Glipizide, Metoprolol, Omeprazole, Aripiprazole, Gabapentin, Hydralazine, Amlodipine, Ziprasidone, Fluoxetine, Doxepin, Furosemide, Losartan, Chief Complaint left leg pain Disposition Transported No Lights/[place] Dispatch Reason No Other Appropriate Choice Transported To [facility] Narrative Medic 1 was dispatched for hip pain. Medic 1 arrived on scene and made pt. contact. Pt. is a 56 y/o male, sitting upright on the edge of the bed, [address] [place] [id number] EMS Patient Care Report Name: FLACA BACON Room: [facility]#: [id number] Admission: 11/13/21 Attend Phys: Discharge: 11/13/21 Date of : 65 Report #: [id number] with a GCS of 15. C/C of upper left leg pain. Pt. is on home O2 NC at 4 lpm. Pt. stated he got up and heard a pop in his leg or knee. Pt. has no obvious deformity and no shortening of the leg. Pt. is able to bare weight on the extremity when being transferred to the stair chair. Pt. has PMS present in lower extremities. Pt. was transferred to the stair chair and secured. Pt. was transferred to the cot and secured. Pt. was loaded into the ambulance and secured. V/S obtained and monitored throughout the transport. BGL was obtained, 101 mg/dl. Pt. was made comfortable for transport with no other C/C or injuries noted. Receiving facility was contacted and report was given. Arrived at receiving facility, pt. was assigned to Bed # , and report was given to receiving nurse. Signatures obtained by pt. and receiving nurse. Medic 1 returned to service. Initial Vitals @11:02Glucose: 101, @11:02P: 69,R: 20,BP: 145/70,GCS: 15,SpO2: 98,Revised Trauma: 12, @11:12P: 74,R: 20,BP: 153/69,GCS: 15,SpO2: 99,Revised Trauma: 12, @11:22P: 74,R: 20,BP: 148/108,GCS: 15,SpO2: 96,Revised Trauma: 12, Impression Extremity Pain Timeline 10:44,Call Received 10:49,Dispatched 10:49,En Route 10:49,On Scene 10:50,At Patient 11:02,BP: / M,PULSE: ,RR: R,SPO2: Ox,ETCO2: ,B,PAIN: ,GCS: , 11:02,BP: 145/70 M,PULSE: 69,RR: 20 R,SPO2: 98 Ox,ETCO2: ,BG: ,PAIN: ,GCS: 15, 11:04,Depart Scene 11:12,BP: 153/69 M,PULSE: 74,RR: 20 R,SPO2: 99 Ox,ETCO2: ,BG: ,PAIN: ,GCS: 15, 11:22,BP: 148/108 M,PULSE: 74,RR: 20 R,SPO2: 96 Ox,ETCO2: ,BG: ,PAIN: ,GCS: 15, 11:27,At Destination 12:07,Call Closed Disclaimer v1.1 Copyright 2021 [employer] This EMS Care Summary contains data elements from the applicable legal record (which may be displayed differently). It is designed to provide pertinent information for the following purposes: continuity of care, clinical quality, and state data reporting. The complete legal record is [place] [address] EMS Patient Care Report Name: FLACA BACON Room: [facility] Scales#: [id number] Admission: 11/13/21 Attend Phys: Discharge: 11/13/21 Date of : 65 Report #: [id number] and administrators of the receiving hospital in [facility]'s Patient Tracker. All data is provided "as is."
[~2021-11-13 11:30] MED LIST changes: +AUGMENTIN 875-1 EACH PO; +OXYCODONE HCL E10 MG PO; +PREDNISONE50 MG PO
[2021-11-13] MEDS ORDERED: FLEXERIL PO (13:33)
[2021-11-13] MEDS ORDERED: PERCOCET PO (13:34)
[2021-11-13 13:54] VITALS: BP 104/51
== END 2021-11-13 14:01 | disposition home or self-care (01) ==
LOC: M.ERS 11:30
DX: M25.552 Pain in left hip (principal); J44.9 Chronic obstructive pulmonary disease, unspecified; E11.9 Type 2 diabetes mellitus without complications; E66.9 Obesity, unspecified; I11.0 Hypertensive heart disease with heart failure; I50.30 Unspecified diastolic (congestive) heart failure; F41.9 Anxiety disorder, unspecified; F31.9 Bipolar disorder, unspecified; K21.9 Gastro-esophageal reflux disease without esophagitis; F20.9 Schizophrenia, unspecified; L40.9 Psoriasis, unspecified; G20 Parkinson's disease; Z68.44 Body mass index [BMI] 60.0-69.9, adult; Z79.2 Long term (current) use of antibiotics; Z79.899 Other long term (current) drug therapy; Z79.82 Long term (current) use of aspirin; Z88.8 Allergy status to other drugs, medicaments and biological substances; Z88.1 Allergy status to other antibiotic agents; Z88.6 Allergy status to analgesic agent; Z88.2 Allergy status to sulfonamides; X50.1XXA Overexertion from prolonged static or awkward postures, initial encounter; Y93.89 Activity, other specified; Y92.89 Other specified places as the place of occurrence of the external cause; Y99.8 Other external cause status